=== PATIENT | female | born 1955 | race Caucasian/White ===

== ENCOUNTER 2019-12-27 11:53 | Inpatient (IN) | payer MEDICARE ==
[2019-12-27] MEDS ORDERED: niCARdipine 20 MG in SODIUM CHLORIDE 0.9% 192 ML IV SCH (12:00)
[2019-12-27 12:23] LABS: Glucose,Whole Blood 134 mg/dL (75-99)
--- NOTE | 2019-12-27 12:23 | ED ---
Neuro HPI - General Chief Complaint: Neuro Symptoms/Deficit Stated Complaint: Poss Stroke Source: EMS Mode of arrival: EMS Limitations: no limitations - History of Present Illness Is the patient presenting with stroke symptoms?: Yes Initial Comments: Patient is a 64-year-old female with past history of hypertension presents emergency room with reported stroke like symptoms. Patient states that approximate 30 minutes prior to hospital arrival (11:30 am) she felt as if she was given follow-up to the left side. This is when she realized that she was completely flaccid on that side. Patient denies previous history of CVA. She notified her neighbor who called EMS. MS found the patient to be extremely hypertensive. Reports that she has a history of hypertension however is not on any medications at this time. Patient had left sided facial droop, dysarthria and left upper and lower extremity weakness. She denies being on any blood thinners. No recent head trauma. No fevers or chills. No other alleviating, precipitating or modifying factors - Related Data Home Medications: Home Medications Medication Instructions Recorded Confirmed Acetaminophen [Tylenol] 1,000 mg PO Q4-6H PRN 12/27/19 12/27/19 Allergies/Adverse Reactions: Allergies Allergy/AdvReac Type Severity Reaction Status Date / Time Unable to Assess Allergy Verified 12/27/19 13:16 Review of Systems ROS Statement: Those systems with pertinent positive or pertinent negative responses have been documented in the HPI. ROS Other: All systems not noted in ROS Statement are negative. General Exam Limitations: no limitations Stroke MDM - Lab Data Result diagrams: 12/27/19 12:18 12/27/19 12:18 Lab Results 12/27/19 12/27/19 12/27/19 Range/Units 12:12 12:18 12:18 WBC 9.4 (3.8-10.6) k/uL RBC 4.47 (3.80-5.40) m/uL Hgb 14.2 (11.4-16.0) gm/dL Hct 42.4 (34.0-46.0) % MCV 94.9 (80.0-100.0) fL MCH 31.8 (25.0-35.0) pg MCHC 33.5 (31.0-37.0) g/dL RDW 12.3 (11.5-15.5) % Plt Count 446 (150-450) k/uL MPV 6.4 Neutrophils % 62 % Lymphocytes % 27 % Monocytes % 6 % Eosinophils % 3 % Basophils % 1 % Neutrophils # 5.8 (1.3-7.7) k/uL Lymphocytes # 2.5 (1.0-4.8) k/uL Monocytes # 0.6 (0-1.0) k/uL Eosinophils # 0.3 (0-0.7) k/uL Basophils # 0.1 (0-0.2) k/uL PT 9.7 (9.0-12.0) sec INR 0.9 (<1.2) APTT 23.4 (22.0-30.0) sec Sodium (137-145) mmol/L Potassium (3.5-5.1) mmol/L Chloride (98-107) mmol/L Carbon Dioxide (22-30) mmol/L Anion Gap mmol/L BUN (7-17) mg/dL Creatinine (0.52-1.04) mg/dL Est GFR (CKD-EPI)AfAm (>60 ml/min/1.73 sqM) Est GFR (CKD-EPI)NonAf (>60 ml/min/1.73 sqM) Glucose (74-99) mg/dL POC Glucose (mg/dL) 134 H (75-99) mg/dL POC Glu Rib Chopper ID [employer] Calcium (8.4-10.2) mg/dL Total Bilirubin (0.2-1.3) mg/dL AST (14-36) U/L ALT (4-34) U/L Alkaline Phosphatase (38-126) U/L Troponin I (0.000-0.034) ng/mL Total Protein (6.3-8.2) g/dL Albumin (3.5-5.0) g/dL 12/27/19 12/27/19 Range/Units 12:18 12:18 WBC (3.8-10.6) k/uL RBC (3.80-5.40) m/uL Hgb (11.4-16.0) gm/dL Hct (34.0-46.0) % MCV (80.0-100.0) fL MCH (25.0-35.0) pg MCHC (31.0-37.0) g/dL RDW (11.5-15.5) % Plt Count (150-450) k/uL MPV Neutrophils % % Lymphocytes % % Monocytes % % Eosinophils % % Basophils % % Neutrophils # (1.3-7.7) k/uL Lymphocytes # (1.0-4.8) k/uL Monocytes # (0-1.0) k/uL Eosinophils # (0-0.7) k/uL Basophils # (0-0.2) k/uL PT (9.0-12.0) sec INR (<1.2) APTT (22.0-30.0) sec Sodium 131 L (137-145) mmol/L Potassium 3.8 (3.5-5.1) mmol/L Chloride 99 (98-107) mmol/L Carbon Dioxide 25 (22-30) mmol/L Anion Gap 7 mmol/L BUN 14 (7-17) mg/dL Creatinine 0.76 (0.52-1.04) mg/dL Est GFR (CKD-EPI)AfAm >90 (>60 ml/min/1.73 sqM) Est GFR (CKD-EPI)NonAf 83 (>60 ml/min/1.73 sqM) Glucose 139 H (74-99) mg/dL POC Glucose (mg/dL) (75-99) mg/dL POC Glu Rib Chopper ID Calcium 9.3 (8.4-10.2) mg/dL Total Bilirubin 0.5 (0.2-1.3) mg/dL AST 25 (14-36) U/L ALT 13 (4-34) U/L Alkaline Phosphatase 86 (38-126) U/L Troponin I <0.012 (0.000-0.034) ng/mL Total Protein 6.3 (6.3-8.2) g/dL Albumin 3.7 (3.5-5.0) g/dL - Medical Decision Making Upon arrival patient is probably evaluated in the potter. She does have an NIH of 11. Accu-Chek is performed and vitals are obtained. Patient is immediately taken to CT for CT brain and CT angiography. Patient is then placed back in the trauma bay. I did discuss results with Dr. Bills. He recommends against TPA administration as the patient does demonstrate multiple areas of previous CVA with concern for cardiac embolic phenomenon. I do received notice that the patient has completely resolved her symptoms at this time which makes TPA relatively contraindicated due to rapidly improving symptoms. Patient was given an aspirin. Laboratory studies are reviewed. CT angiography does demonstrate atheromatous changes present. It is reevaluated upon multiple occasions and her NH continues to be 0. She is maintained on a Cardene drip because of her hypertensive emergency. Results are discussed with the patient. I also discussed the case with who accepted admission. Also discussed the case with Mitchell who works with Dr. Allred who accepted the patient to the ICU. The pressure goal will be 180-220 systolic. Patient currently remained in stable condition awaiting a bed EKG demonstrates a sinus tachycardia with a ventricular rate of 109. TX interval 144. QRS 86. QTC of 476. No acute ST segment elevations or depressions concerning for ischemic changes 12/27/19 12:23 Past Medical History Past Medical History: Hypertension History of Any Multi-Drug Resistant Organisms: None Reported Past Surgical History: Appendectomy, Section Past Psychological History: Anxiety Smoking Status: Current every day smoker Past Alcohol Use History: Daily Past Drug Use History: Marijuana Course Vital Signs 12/27/19 12/27/19 12/27/19 12:02 12:10 12:44 Temperature 98.7 F Pulse Rate 120 H 124 H 130 H Respiratory 18 18 18 Rate Blood Pressure 259/136 233/138 212/128 O2 Sat by Pulse 98 100 97 Oximetry 12/27/19 12/27/19 12/27/19 13:26 13:39 14:00 Temperature Pulse Rate 116 H 123 H 122 H Respiratory 18 18 18 Rate Blood Pressure 169/88 184/98 169/107 O2 Sat by Pulse 98 96 97 Oximetry 12/27/19 14:57 Temperature Pulse Rate 122 H Respiratory 18 Rate Blood Pressure 174/123 O2 Sat by Pulse 96 Oximetry - Reevaluation(s) Reevaluation #1: On phone with Dr. Ford. RN notifies me that patient is now moving left side and NIH is zero. Not a TPA candidate due to rapidly improving symptoms. RN then notifies me that patients symptoms have returned and NIH is now 7. Dr. Ford states there are signs of multiple CVAs on CT. Recommends AGAINST TPA due risk of hemorrhagic conversion. 12/27/19 12:18 Reevaluation #2: Patient at this time and NIH is currently 0. Patient has received entire function back of her left side 12/27/19 13:23 Disposition Clinical Impression: Cerebrovascular accident (CVA), Sinus tachycardia, Left hemiparesis Disposition: ADMITTED IP TO THIS [facility] Condition: Serious Is patient prescribed a controlled substance at d/c from ED?: No Decision to Admit Reason: Admit from EC Decision Date: 12/27/19 Decision Time: 13:24
--- NOTE | 2019-12-27 12:26 | CT ---
EXAMINATION TYPE: CT brain wo con for TPA DATE OF EXAM: 12/27/2019 COMPARISON: None HISTORY: Left sided paralysis CT DLP: 1102.8 mGycm Automated exposure control for dose reduction was used. Helical imaging through the brain. FINDINGS: Periventricular and subcortical white matter shows patchy low attenuation, somewhat asymmetric, there is greater low attenuation in the watershed area of the left posterior parietal region. Basal gangli a show calcification bilaterally. Cortical atrophy is noted. No hemorrhage or hydrocephalus. Calvariu m is intact. Inflammatory changes present in the right maxillary sinus. IMPRESSION: AGE-RELATED CHANGES OF ATROPHY AND CHRONIC SMALL VESSEL ISCHEMIA, MRI MAY BE OF BENEFIT.
[2019-12-27 12:27] LABS: Basophils # (A) 0.1 k/uL (0-0.2); Basophils % (A) 1 %; Eosinophils # (A) 0.3 k/uL (0-0.7); Eosinophils % (A) 3 %; HCT 42.4 % (34.0-46.0); HGB 14.2 gm/dL (11.4-16.0); Lymphocytes # (A) 2.5 k/uL (1.0-4.8); Lymphocytes % (A) 27 %; MCH 31.8 pg (25.0-35.0); MCHC 33.5 g/dL (31.0-37.0); MCV 94.9 fL (80.0-100.0); Mean Platelet Volume 6.4; Monocytes # (A) 0.6 k/uL (0-1.0); Monocytes % (A) 6 %; Neutrophils # (A) 5.8 k/uL (1.3-7.7); Neutrophils % (A) 62 %; Platelet Count 446 k/uL (150-450); RBC 4.47 m/uL (3.80-5.40); RDW 12.3 % (11.5-15.5); WBC 9.4 k/uL (3.8-10.6)
[2019-12-27 12:37] LABS: ALT 13 U/L (4-34); AST 25 U/L (14-36); African American GFR (CKD) >90 (>60 ml/min/1.73 sqM); Albumin 3.7 g/dL (3.5-5.0); Alkaline Phosphatase 86 U/L (38-126); Anion Gap 7 mmol/L; Blood Urea Nitrogen 14 mg/dL (7-17); Calcium 9.3 mg/dL (8.4-10.2); Carbon Dioxide 25 mmol/L (22-30); Chloride 99 mmol/L (98-107); Glucose 139 mg/dL (74-99); Non-African American GFR(CKD) 83 (>60 ml/min/1.73 sqM); Potassium 3.8 mmol/L (3.5-5.1); Sodium 131 mmol/L (137-145); Total Bilirubin 0.5 mg/dL (0.2-1.3); Total Protein 6.3 g/dL (6.3-8.2)
[2019-12-27 12:42] LABS: INR 0.9 (<1.2); Partial Thromboplastin Time 23.4 sec (22.0-30.0); Prothrombin Time 9.7 sec (9.0-12.0)
--- NOTE | 2019-12-27 12:52 | XR ---
EXAMINATION TYPE: XR chest 2V DATE OF EXAM: 12/27/2019 COMPARISON: NONE TECHNIQUE: PA and lateral views submitted. HISTORY: Syncope FINDINGS: The lungs are clear and there is no pneumothorax, pleural effusion, or focal pneumonia. Hyperinflat ion noted. Degenerative changes spine. Atherosclerotic change aorta IMPRESSION: 1. No acute process. 2. COPD.
--- NOTE | 2019-12-27 13:00 | CT ---
EXAMINATION TYPE: CT angio head neck DATE OF EXAM: 12/27/2019 HISTORY: Neuro deficit, acute stroke suspected COMPARISON: CT brain same date CT DLP: 303.8 mGycm. Automated Exposure Control for Dose Reduction was Utilized. TECHNIQUE: CTA scan of the neck is performed with IV Contrast, patient injected with 60 mL of Isovue 370, axial images are obtained, coronal and sagittal reformatted images are reviewed. Three-D recons tructed images are created on an independent workstation and reviewed. FINDINGS: Carotid/Vascular Structures: The transverse aorta, innominate, left and right common carotid, left an d right subclavian arteries are patent. The vertebral arteries are patent. Right vertebral artery is dominant. The right internal and external carotid arteries are patent as are the left, there is no si gnificant stenosis of the proximal internal carotid artery on the right or left by NASCETcriteria. T here is extensive plaque involving the carotid bulb on the left. Stenosis of the proximal internal ca rotid artery on the left corresponds to approximately less than 50% diameter reduction. The [place] is patent, anterior posterior circulation show no embolus, dissection, or aneury sm, some cerebral vascular calcifications are present in the carotid siphons. Other: Probable spinal curvature in the thoracic spine. Degenerative disc disease present within the cervical spine Inflammatory change present within the right maxillary sinus. Mastoid air cells on the right to show some inflammatory change. Incidental thyroid nodularity noted. IMPRESSION: Atheromatous changes are present as described. No hemodynamic significant stenosis. No ev ident embolus. Additional findings above.
[2019-12-27] MEDS ORDERED: ATORVASTATIN 40 MG TAB PO STA (13:24)
[2019-12-27] MEDS ORDERED: ASPIRIN 325 MG TAB PO STA (13:24)
[2019-12-27] MEDS ORDERED: NALOXONE 0.4 MG/ML 1 ML VIAL IV PRN (13:25)
[2019-12-27] MEDS ORDERED: CLOPIDOGREL 75 MG TAB PO STA (15:18)
--- NOTE | 2019-12-27 15:52 | P.CNNES ---
History of Present Illness Consult date: 12/27/19 Requesting physician: Macie Saldana Reason for Consult: Acute left hemiparesis-resolved, suspected TIA, hypertensive emergency History of Present Illness: Patient is a 64-year-old female arrived to the hospital at 11:53 AM by ambulance for acute onset of left hemiparesis. Patient states that around 11:30 AM, she was sitting in the chair using her cell phone, when the phone fell off her left hand, and she felt as if she was losing balance and she did fall onto the floor on the left side from a seated position. When she fell, she could not get up, as her left side was completely flaccid. She required help. She couldn't move her left side. Her called the ambulance and patient was brought to the hospital by ambulance. Patient's blood pressure on arrival was 259/136, pulse rate 120, temperature 98.7. CT head revealed periventricular and subcortical white matter shows patchy low attenuation, somewhat asymmetric, there is greater low attenuation in the watershed area of the left posterior parietal region. Basal ganglia show calcification bilaterally. Some cortical atrophy. Overall impression, it showed age-related changes of atrophy and chronic small vessel ischemia, MRI may be of benefit. CTA of head and neck showed atheromatous changes. No hemodynamic significant stenosis. No evident embolus. Chest x-ray showed no acute process, COPD. EKG shows sinus tachycardia. CBC, PT/PTT normal, sodium 131 potassium 3.8, normal renal functions. Hepatic panel troponin normal or negative. Stroke neurologist Dr. Ford was consulted by the ED staff. At 12:18 PM she was not a candidate for TPA because of rapidly improving symptoms. However symptoms came back and her NIH stroke scale was 7. The stroke neurologist noticed there were signs of multiple CVAs on the CT and recommended against TPA due to risk of hemorrhagic conversion. Another documentation by ED staff at 1:23 PM showed patient's NIH stroke scale again 0. Her left hemiparesis has resolved. Patient had 2 other episodes of transient Left hemiparesis, that resolved in a few minutes. At present patient feels perfectly fine. Patient has history of hypertension and hyperlipidemia for 5 years, but stopped taking medication for both of these conditions 2 years ago as the medications were making her feel sick. She has smoked 1 pack per day since age 14. Patient does not take any antiplatelet medication. Review of Systems As above in detail. All other review of systems completely unremarkable. Patient denies any chest pain shortness of breath wheezing or cough. Denies any double vision, loss of vision, hoarseness, sore throat, dysphagia. Denies abdominal pain, nausea vomiting diarrhea. Past Medical History Past Medical History: Hypertension History of Any Multi-Drug Resistant Organisms: None Reported Past Surgical History: Appendectomy, Section Past Psychological History: Anxiety Smoking Status: Current every day smoker Past Alcohol Use History: Daily Past Drug Use History: Marijuana Medications and Allergies Home Medications Medication Instructions Recorded Confirmed Type Acetaminophen [Tylenol] 1,000 mg PO Q4-6H PRN 12/27/19 12/27/19 History Allergies Allergy/AdvReac Type Severity Reaction Status Date / Time Unable to Assess Allergy Verified 12/27/19 13:16 Physical Examination - Vital Signs Vital Signs: Vital Signs Temp Pulse Resp BP Pulse Ox 12/27/19 14:00 122 H 18 169/107 97 12/27/19 13:39 123 H 18 184/98 96 12/27/19 13:26 116 H 18 169/88 98 12/27/19 12:44 130 H 18 212/128 97 12/27/19 12:10 98.7 F 124 H 18 233/138 100 12/27/19 12:02 120 H 18 259/136 98 Intake and Output 12/26/19 12/27/19 12/27/19 22:59 06:59 14:59 Intake Total 115.833 Balance 115.833 Intake: Intake, IV Titration 115.833 Amount niCARdipine 20 mg In 115.833 Sodium Chloride 0.9% 192 ml @ 5 MG/HR 50 mls/hr IV .Q4H [facility] Rx#:[id number] Other: Weight 49.895 kg On examination patient is an elderly female, in no acute distress. Patient is alert and awake fully oriented. Speech and language functions are normal. Attention and concentration, fund of knowledge is adequate. On cranial nerve examination pupils are round and reactive to light, visual carpenter are full on confrontation, extraocular muscles are intact with no nystagmus. Face is symmetric, tongue protrudes to the midline. Palatal elevation and sensation normal, hearing and shoulder shrug normal. Facial sensations normal. On muscle strength testing there is no pronator drift and the strength is normal in the arms and legs distally and proximally except left deltoid which is about 5-on the left. Sensory to touch is equal with no neglect on double simultaneous stimulation. Deep tendon reflexes are diminished and plantars are downgoing. Tone and bulk of muscles normal. No ataxia for [id number] testing although she slightly tremulous on both sides. Gait deferred. There is no obvious bruit, S1 and S2 audible, peripheral pulses present. Abdomen soft nontender. Chest clear. Results - Laboratory Findings CBC and BMP: 12/27/19 12:18 12/27/19 12:18 Abnormal Lab Findings: Abnormal Labs 12/27/19 12/27/19 12:12 12:18 Sodium 131 L Glucose 139 H POC Glucose (mg/dL) 134 H Assessment and Plan Assessment: * Recurrent TIA, manifesting with left hemiparesis, resolved. Patient had 4 such spells today. Patient's current NIH stroke scale is 0. * Hypertension * Hyperlipidemia * Tobacco user * Noncompliance with medication. Plan: * Patient has been given aspirin 325 mg. We will also add Plavix 75 mg for stroke prevention (DAP for 3 weeks). Symptoms are likely due to small vessel disease with ischemia in a small penetrating blood vessel (internal capsule or angelina). * Permissive hypertension, with treatment of blood pressure > 200/110. * MRI of the brain * Fasting lipid panel, hemoglobin A1c * 2-D echo to rule out any embolic source. * Complete tobacco cessation. * Close neuro checks every 1 hour 6 hours and then every 2 hours. * Neurology will follow.
--- NOTE | 2019-12-27 19:15 | P.CNPUL ---
History of Present Illness Consult date: 12/27/19 Chief complaint: Acute left-sided weakness, TIA History of present illness: 64-year-old female patient who came into the hospital because of an acute left- sided weakness and hypertensive emergency. The patient arrived to the hospital on 11:53 AM via ambulance as the patient developed an acute left-sided hemiparesis. Please refer to neurology regarding the details of the hospital admission as the patient was apparently at home and she was using her cell phone where she felt that the left side of the body became weak and she dropped a phon e. The patient also fell onto the floor on the left side from a seated position. She felt that the left side was quite flaccid. She required help. EMS was called to the scene. The patient's blood pressure was 259/136 with a pulse of 120 and a temperature of 98.7. In the ED, CAT scan of the head was done and it showed periventricular subcortical white matter changes and patchy low attenuation, somewhat asymmetric and greater attenuation in the watershed areas on the left posterior parietal region. Basil ganglia was calcified bilaterally. There was also some cortical atrophy. Overall impression was that the patient agent at that atrophy with chronic small vessel ischemia. CT angios the head and the neck showed atherosclerotic changes. No significant hemodynamic stenosis. No evidence of any embolism. At that point, interventional physician was involved and the patient was not found to be a candidate for TPA as the patient also showed rapid improvement in his symptoms. Her NIH score came back at 7. The patient was noted to have areas of multiple CVA on the CAT scan and he recommended against TPA due to risk of hemorrhagic transformation. The patient gradually had some recovery left-sided weakness. At the time of the evaluation by our neurologist the patient had adequate motor function and a left side of the body. Note that the patient also has history of hypertension and hyperlipidemia. Based on the significant rise in the blood pressure, the patient was started on Nicardepine drip and ICU transfer was recommended. The patient was started on aspirin 325 mg by mouth daily. The patient was also started on Plavix 75 mg by mouth daily. It was recommended ofelia t the patient received permissive hypertension with treatment of the blood pressure only. Goes above and beyond systolic of 200 and diastolic above 110. MRI of the brain is pending. Echocardiogram was also ordered.during her ED stay, the patient had an additional 3 episodes of TIA with complete recovery. This was witnessed by the neurologist . Nicardipene uis currently running @ 0.8 mg/hr Review of Systems Constitutional: Denies chills, Denies fever Eyes: denies as per HPI, denies blurred vision, denies bulging eye, denies d ecreased vision, denies diplopia, denies discharge, denies dry eye, denies irritation, denies itching, denies pain, denies photophobia, denies loss of peripheral vision, denies loss of vision, denies tunnel vision/blind spots Ears: deny: decreased hearing, ear discharge, earache, tinnitus Ears, nose, mouth and throat: Denies headache, Denies sore throat Breasts: absent: as per HPI, change in shape, gynecomastia, masses, nipple discharge, pain, skin changes, swelling Cardiovascular: Denies chest pain, Denies shortness of breath Respiratory: Reports as per HPI Gastrointestinal: Reports as per HPI Genitourinary: Reports as per HPI Menstruation: Reports as per HPI Musculoskeletal: Reports as per HPI Musculoskeletal: absent: ankle pain, ankle stiffness, ankle swelling Integumentary: Reports as per HPI Neurological: Reports weakness Psychiatric: Reports as per HPI Endocrine: Reports as per HPI Hematologic/Lymphatic: Reports as per HPI Allergic/Immunologic: Reports as per HPI Past Medical History Past Medical History: Hyperlipidemia, Hypertension History of Any Multi-Drug Resistant Organisms: None Reported Past Surgical History: Appendectomy, Section Past Psychological History: Anxiety Smoking Status: Current every day smoker Past Alcohol Use History: Daily Past Drug Use History: Marijuana Medications and Allergies Home Medications Medication Instructions Recorded Confirmed Type Acetaminophen [Tylenol] 1,000 mg PO Q4-6H PRN 12/27/19 12/27/19 History Allergies Allergy/AdvReac Type Severity Reaction Status Date / Time Unable to Assess Allergy Verified 12/27/19 13:16 Physical Exam Vitals: Vital Signs Temp Pulse Resp BP Pulse Ox 12/27/19 18:00 115 H 18 179/128 99 12/27/19 15:55 113 H 18 172/113 98 12/27/19 14:57 122 H 18 174/123 96 12/27/19 14:00 122 H 18 169/107 97 12/27/19 13:39 123 H 18 184/98 96 12/27/19 13:26 116 H 18 169/88 98 12/27/19 12:44 130 H 18 212/128 97 12/27/19 12:10 98.7 F 124 H 18 233/138 100 12/27/19 12:02 120 H 18 259/136 98 Intake and Output 12/27/19 12/27/19 12/27/19 06:59 14:59 22:59 Intake Total 115.833 Balance 115.833 Intake: Intake, IV Titration 115.833 Amount niCARdipine 20 mg In 115.833 Sodium Chloride 0.9% 192 ml @ 5 MG/HR 50 mls/hr IV .Q4H [facility] Rx#:[id number] Other: Weight 49.895 kg The patient appeared well nourished and normally developed. Vital signs as documented. Head exam is unremarkable. No scleral icterus or corneal arcus noted. Neck is without jugular venous distension, thyromegaly, or carotid bruits. Carotid upstrokes are brisk bilaterally. Lungs are clear to auscultation and percussion. Cardiac exam reveals the PMI to be normally sized and situated. Rhythm is regular. First and second heart sounds normal. No murmurs, rubs or gallops. Abdominal exam reveals normal bowel sounds, no masses, no organomegaly and no aortic enlargement. Extremities are nonedematous and both femoral and pedal pulses are normal. Went over skin neurologically,pupils are round and reactive to light, visual carpenter are full on confrontation, extraocular muscles are intact with no nystagmus. Face is symmetric, tongue protrudes to the midline. Palatal elevation and sensation normal, hearing and shoulder shrug normal. Facial sensations normal. On muscle strength testing there is no pronator drift and the strength is normal in the arms and legs distally and proximally except left deltoid which is about 5-on the left. Sensory to touch is equal with no neglect on double simultaneous stimulation. Deep tendon reflexes are diminished and plantars are downgoing. Tone and bulk of muscles normal. No ataxia for [id number] testing although she slightly tremulous on both sides. Gait deferred Results - Laboratory Findings CBC and BMP: 12/27/19 12:18 12/27/19 12:18 PT/INR, D-dimer PT 9.7 sec (9.0-12.0) 12/27/19 12:18 INR 0.9 (<1.2) 12/27/19 12:18 Abnormal lab findings: Abnormal Labs 12/27/19 12/27/19 12:12 12:18 Sodium 131 L Glucose 139 H POC Glucose (mg/dL) 134 H - Diagnostic Findings Chest x-ray: image reviewed Assessment and Plan Plan: 1 acute hypertensive emergency 2 recurrent TIAs manifesting with left-sided hemiparesis and clinically the patient recovered from this and she is back to her baseline. The patient had several spells of TIAs. Her current NIH score scale is at 0 3 hypertension, history of 4 Hyperlipidemia 5 smoker Plan We'll chest with the patient in ICU neuro checks frequently every 1 hour in the ICU Continue aspirin and Plavix per neurology recommendation. Continue with a nicardipine drip allowing blood pressure at a higher level. The permissive hypertension will include treatment of blood pressure >200/110 and according to the drip rate will be adjusted in the ICU echocardiogram to rule out any embolic source of TIA Fasting lipid profile Smoking cessation counseling We'll continue to follow
[2019-12-27] MEDS: niCARdipine 20 MG in SODIUM CHLORIDE 0.9% 192 ML IV SCH ×2 (19:30→22:12)
--- NOTE | 2019-12-27 20:47 | P.HPIM ---
History of Present Illness H&P Date: 12/27/19 Patient is a 64-year-old female with a known history of hypertension not taking any medications, currently everyday smoker, anxiety and history of marijuana use presents to ER with complaints of sudden onset of left sided weakness about half an hour prior to arrival to the hospital. Patient was sitting and using her cell phone and suddenly she felt left-sided weakness and her cell phone follow-up from her hand and patient fall towards the left side. Patient could not move her left side and her called the ambulance and the patient was brought to the hospital. On admission patient's blood pressure was 259/130 6 mmHg and pulse 120 and respiration 18 and pulse ox 98% CT head showed age-related changes of atrophy and chronic small ischemia and periventricular and subcortical white matter shows patchy low-attenuation somewhat asymmetric changes. CT angiogram of the head and neck was done showed atheromatous changes with less than 50% diameter reduction. No hemodynamic significant stenosis. Chest x-ray showed COPD. No acute process. EKG showed sinus tachycardia Symptoms resolved spontaneously. Patient was seen by stroke neurology in the ER and was not a candidate for TPA. Also noticed there were signs of multiple CVAs on the CT and recommended against TPA due to possible hemorrhagic conversion. Laboratory data showed sodium 131, potassium 3.8 and chloride 99 and BUN 14 and creatinine 0.76 Troponin 0 0.012 Liver enzymes are within normal limits Review of Systems Constitutional: Patient denies any fever or chills . No generalized weakness or weight loss. Abdomen: Patient denied nausea vomiting and diarrhea and abdominal pain. Cardiovascular: Patient denies any chest pain or short of breath no palpitations. Respiratory: patient denied any cough or sputum production. No shortness of breath Neurologic: Patient denied any numbness or tingling headache. left sided weakness on admission Musculoskeletal: Patient denies any complaints of joint swelling or deformity. Skin: Negative Psychiatric: Negative Endocrine: No heat or cold intolerance. No recent weight gain. Genitourinary: No dysuria or hematuria. All other 14 point ROS negative except the above Past Medical History Past Medical History: Hyperlipidemia, Hypertension History of Any Multi-Drug Resistant Organisms: None Reported Past Surgical History: Appendectomy, Section Past Psychological History: Anxiety Smoking Status: Current every day smoker Past Alcohol Use History: Daily Past Drug Use History: Marijuana Medications and Allergies Home Medications Medication Instructions Recorded Confirmed Type Acetaminophen [Tylenol] 1,000 mg PO Q4-6H PRN 12/27/19 12/27/19 History Allergies Allergy/AdvReac Type Severity Reaction Status Date / Time Unable to Assess Allergy Verified 12/27/19 13:16 Physical Exam Vitals: Vital Signs Temp Pulse Resp BP Pulse Ox 12/27/19 19:48 98.2 F 99 18 174/114 99 12/27/19 18:43 97.8 F 110 H 18 164/111 12/27/19 18:00 115 H 18 179/128 99 12/27/19 15:55 113 H 18 172/113 98 12/27/19 14:57 122 H 18 174/123 96 12/27/19 14:00 122 H 18 169/107 97 12/27/19 13:39 123 H 18 184/98 96 12/27/19 13:26 116 H 18 169/88 98 12/27/19 12:44 130 H 18 212/128 97 12/27/19 12:10 98.7 F 124 H 18 233/138 100 12/27/19 12:02 120 H 18 259/136 98 Intake and Output 12/27/19 12/27/19 12/27/19 06:59 14:59 22:59 Intake Total 115.833 92.667 Balance 115.833 92.667 Intake: Intake, IV Titration 115.833 92.667 Amount niCARdipine 20 mg In 115.833 84.167 Sodium Chloride 0.9% 192 ml @ 5 MG/HR 50 mls/hr IV .Q4H [facility] Rx#:[id number] niCARdipine 20 mg In 8.5 Sodium Chloride 0.9% 192 ml @ 5 MG/HR 50 mls/hr IV .Q4H [facility] Rx#:[id number] Other: Weight 49.895 kg PHYSICAL EXAMINATION: Patient is lying in the bed comfortably, no acute distress, awake alert and oriented.. HEENT: Normocephalic. Neck is supple. Pupils reactive. Nostrils clear. Oral cavity is moist. Ears reveal no drainage. Neck reveals no JVD, carotid bruits, or thyromegaly. CHEST EXAMINATION: Trachea is central. Symmetrical expansion. Lung carpenter clear to auscultation and percussion. CARDIAC: Normal S1, S2 with no gallops. No murmurs ABDOMEN: Soft. Bowel sounds normal. No organomegaly. No abdominal bruits. Extremities: reveal no edema. No clubbing or cyanosis Neurologically awake, alert, oriented x3 with well-coordinated movements. No focal deficits noted Skin: No rash or skin lesions. Psychiatric: Coperative. Nonsuicidal Musculoskeletal: No joint swelling or deformity. Normal range of motion. Results CBC & Chem 7: 12/27/19 12:18 12/27/19 12:18 Labs: Abnormal Lab Results - Last 24 Hours (Table) 12/27/19 12/27/19 Range/Units 12:12 12:18 Sodium 131 L (137-145) mmol/L Glucose 139 H (74-99) mg/dL POC Glucose (mg/dL) 134 H (75-99) mg/dL Thrombosis Risk Factor Assmnt - DVT/VTE Prophylaxis DVT/VTE Prophylaxis: Mechanical Prophylaxis ordered Assessment and Plan Assessment: Acute left-sided hemiparesis resolved now. Likely due to TIA. Abnormal CT scan multiple small infarcts. Rule out embolic phenomenon. Hypertensive emergency on admission. Not on any antihypertensives at home. Hyperlipidemia Ongoing nicotine addiction DVT prophylaxis with SCDs. Plan: Patient was given a dose of aspirin 325 mg in the ER. Plavix was added. Patient was started on nicardipine drip with a goal of blood pressure 180/110. Patient will be monitored in the ICU. A1c, lipid panel, TSH and B12 levels will be ordered. Neurology is on board and further recommendations based on the clinical course. Prognosis guarded at this time. Time with Patient: Greater than 30
[2019-12-28] MEDS: niCARdipine 20 MG in SODIUM CHLORIDE 0.9% 192 ML IV SCH ×4 (00:51→10:29)
[2019-12-28 03:33] LABS: Hemoglobin A1C 5.5 % (4.0-6.0)
[2019-12-28 04:35] LABS: Basophils # (A) 0.1 k/uL (0-0.2); Basophils % (A) 0 %; Eosinophils # (A) 0.4 k/uL (0-0.7); Eosinophils % (A) 3 %; HGB 14.6 gm/dL (11.4-16.0); Lymphocytes % (A) 15 %; MCH 32.6 pg (25.0-35.0); MCHC 33.9 g/dL (31.0-37.0); MCV 96.1 fL (80.0-100.0); Mean Platelet Volume 6.5; Monocytes # (A) 0.6 k/uL (0-1.0); Monocytes % (A) 4 %; Neutrophils # (A) 10.7 k/uL (1.3-7.7); Neutrophils % (A) 77 %; Platelet Count 450 k/uL (150-450); RBC 4.47 m/uL (3.80-5.40); RDW 12.3 % (11.5-15.5); WBC 13.8 k/uL (3.8-10.6)
[2019-12-28 04:43] LABS: African American GFR (CKD) >90 (>60 ml/min/1.73 sqM); Anion Gap 6 mmol/L; Blood Urea Nitrogen 11 mg/dL (7-17); Calcium 9.4 mg/dL (8.4-10.2); Carbon Dioxide 27 mmol/L (22-30); Chloride 102 mmol/L (98-107); Cholesterol 270 mg/dL (<200); Glucose 119 mg/dL (74-99); HDL Cholesterol 89 mg/dL (40-60); LDL Cholesterol,Calculated 166 mg/dL (0-99); Non-African American GFR(CKD) 80 (>60 ml/min/1.73 sqM); Potassium 3.6 mmol/L (3.5-5.1); Sodium 135 mmol/L (137-145); Triglycerides 75 mg/dL (<150)
--- NOTE | 2019-12-28 09:24 | MR ---
EXAMINATION TYPE: MR brain wo con DATE OF EXAM: 12/28/2019 COMPARISON: CT brain 12/27/2019 HISTORY: CVA CONTRAST: Performed utilizing 0 mL intravenous Gadavist gadolinium contrast. TECHNIQUE: Multiplanar, multiecho imaging on a 3.0 Lacy magnet is performed through the brain. Stud y is performed within 24 hours of arrival to the hospital. The craniovertebral junction is normal. The pituitary is normal. Diffusion-weighted imaging is performed. No abnormal hyperintensity is present to suggest an acute i ntracranial infarct or acute ischemic change. There are scattered periventricular white matter changes, likely on the basis of chronic white matter ischemic change. Other etiologies could be considered including multiple sclerosis and vasculitis. L argest area is superior to the occipital horn left lateral ventricle measuring 2.1 x 2.3 cm. Findings correlate with the CT findings. Ventricles and sulci are slightly prominent for the patient age. Mucosal thickenings within the lateral right maxillary sinus. Fluid is within the bilateral mastoid a ir cells. Correlate for bilateral mastoiditis. IMPRESSIONS: 1. Periventricular and deep white matter changes, likely on the basis of chronic white matter ischemi c change. Other etiologies are not excluded. 2. Mild atrophy
--- NOTE | 2019-12-28 09:48 | ECHOF ---
Referral Reason:TIA versus CVA MEASUREMENTS -------- HEIGHT: 162.6 cm WEIGHT: 49.9 kg BP: RVIDd: 3.1 cm (< 3.3) IVSd: 1.2 cm (0.6 - 1.1) LVIDd: 3.6 cm (3.9 - 5.3) LVPWd: 1.6 cm (0.6 - 1.1) IVSs: 1.6 cm LVIDs: 3.0 cm LVPWs: 1.5 cm LA Diam: 3.3 cm (2.7 - 3.8) LAESV Index (A-L): 20.72 ml/m Ao Diam: 2.8 cm (2.0 - 3.7) AV Cusp: 2.0 cm (1.5 - 2.6) MV EXCURSION: 11.820 mm (> 18.000) MV EF SLOPE: 59 mm/s (70 - 150) EPSS: 0.1 cm MV E Michael: 0.47 m/s MV DecT: 242 ms MV A Michael: 1.05 m/s MV E/A Ratio: 0.45 RAP: 5.00 mmHg RVSP: 24.10 mmHg FINDINGS -------- Sinus rhythm. This was a technically good study. The left ventricular size is normal. There is mild concentric left ventricular hypertrophy. Overa ll left ventricular systolic function is low-normal with, an EF between 50 - 55 %. The right ventricle is normal in size. The left atrial size is normal. The right atrial size is normal. No bubble study done, no PA to inject. There is mild aortic valve sclerosis. Mild mitral regurgitation is present. Mild tricuspid regurgitation present. Right ventricular systolic pressure is normal at < 35 mmHg. The aortic root size is normal. There is no pericardial effusion. CONCLUSIONS -------- 1. The left ventricular size is normal. 2. There is mild concentric left ventricular hypertrophy. 3. Overall left ventricular systolic function is low-normal with, an EF between 50 - 55 %. 4. The right ventricle is normal in size. 5. The left atrial size is normal. 6. The right atrial size is normal. 7. No bubble study done, no PA to inject. 8. There is mild aortic valve sclerosis. 9. Mild mitral regurgitation is present. 10. Mild tricuspid regurgitation present. 11. Right ventricular systolic pressure is normal at < 35 mmHg. 12. The aortic root size is normal. 13. There is no pericardial effusion DROP WIRE BUILDER: Rosario Desai RDCS
[2019-12-28 10:58] VITALS: BMI 18.8
[2019-12-28] MEDS ORDERED: POTASSIUM CHLORIDE ER 20 MEQ TAB.ER PO SCH (11:00)
[2019-12-28] MEDS: ATORVASTATIN 80 MG TAB PO SCH (11:19)
[2019-12-28] MEDS: CLOPIDOGREL 75 MG TAB PO SCH (11:19)
[2019-12-28] MEDS: ASPIRIN 81 MG PO SCH (11:19)
--- NOTE | 2019-12-28 11:38 | ECHOF ---
Referral Reason:BUBBLE STUDY MEASUREMENTS -------- HEIGHT: 0.0 cm WEIGHT: 0.0 kg BP: FINDINGS -------- Limited Study Contrast study was performed with 2 iv injections of 8 ccs of agitated normal saline, at rest, and wi th cough. Negative agitated saline study for PFO. Interatrial and interventricular septum intact. CONCLUSIONS -------- 1. Contrast study was performed with 2 iv injections of 8 ccs of agitated normal saline, at rest, and with cough. 2. Negative agitated saline study for PFO. 3. Interatrial and interventricular septum intact. ADMINISTRATIVE SALES ASSISTANT: Pratima Cordova RDCS
[2019-12-28 12:06] LABS: T4, Free (Free Thyroxine) 1.25 ng/dL (0.78-2.19)
--- NOTE | 2019-12-28 13:25 | P.PN ---
Subjective Progress Note Date: 12/28/19 Patient states she is doing well. No further TIAs since last seen. Denies headache. Objective - Vital Signs Vital signs: Vital Signs Temp 97.9 F 12/28/19 09:42 Pulse 101 H 12/28/19 11:00 Resp 24 12/28/19 11:00 BP 144/75 12/28/19 11:00 Pulse Ox 99 12/28/19 11:00 Intake & Output 12/27/19 12/28/19 12/28/19 18:59 06:59 18:59 Intake Total 200.000 491.00 316.250 Output Total 0 Balance 200.000 491.00 316.250 Weight 49.895 kg 49.895 kg Intake: Intake, IV Titration 200.000 491.00 316.250 Amount niCARdipine 20 mg In 200.000 Sodium Chloride 0.9% 192 ml @ 5 MG/HR 50 mls/hr IV .Q4H [facility] Rx#:[id number] niCARdipine 20 mg In 491.00 316.250 Sodium Chloride 0.9% 192 ml @ 5 MG/HR 50 mls/hr IV .Q4H [facility] Rx#:[id number] Oral 0 Output: Urine 0 Other: Voiding Method Bedside Commode # Voids 1 1 - Exam On examination mental status speech and language functions are normal. Cranial nerves are normal. Muscle strength no drift and the strength is normal. Sensations are equal. No ataxia. Tone and bulk of muscles normal. - Labs CBC & Chem 7: 12/28/19 04:12 12/28/19 04:12 Labs: Abnormal Lab Results - Last 24 Hours (Table) 12/28/19 12/28/19 Range/Units 04:12 04:12 WBC 13.8 H (3.8-10.6) k/uL Neutrophils # 10.7 H (1.3-7.7) k/uL Sodium 135 L (137-145) mmol/L Glucose 119 H (74-99) mg/dL Cholesterol 270 H (<200) mg/dL LDL Cholesterol, Calc 166 H (0-99) mg/dL HDL Cholesterol 89 H (40-60) mg/dL Assessment and Plan Assessment: * Recurrent TIA, manifesting with left hemiparesis, resolved. Patient had 4 such spells today. Patient's current NIH stroke scale is 0. MRI of brain negative for stroke. * Hypertension urgency with accelerated hypertension * Hyperlipidemia * Tobacco user * Noncompliance with medication. Plan: * Continue dual antiplatelet medication with aspirin 81 mg and Plavix 75 mg. Symptoms are likely due to small vessel disease with ischemia in a small penet rating blood vessel (internal capsule or angelina). * Blood pressure now well controlled, most recent 144/75. * MRI of the brain revealed periventricular and deep white matter changes, likely on the basis of chronic white matter ischemic change. No acute stroke. * Fasting lipid panel with cholesterol 270, LDL 166, HDL 89 triglycerides 75. Agree with high-dose statins Lipitor 80 mg. * Hemoglobin A1c 5.5 normal. * 2-D echo showed normal left ventricular size, mild concentric LVH, EF is 50- 55%. Left atrial size is normal. Mild aortic valve sclerosis. Bubble study was negative for PFO. Interatrial and interventricular septum intact. * Complete tobacco cessation. * Neurologically patient is stable. * If patient has any recurrent focal symptoms, patient could still be a candidate for thrombolysis, if indicated in appropriate clinical setting, as her current MRI of the brain is completely normal.
--- NOTE | 2019-12-28 16:38 | P.PN ---
Subjective Progress Note Date: 12/28/19 On today's evaluation of 12/28/2019, the patient is neurologically intact. No headaches. No focal neurological deficits. No further episodes of TIAs. The patient will be taken off the nicardipine and the patient will be started on low-dose atenolol as the patient is having some mild sinus tachycardia. BP is under better control and the most recent BP is 144/75. She is afebrile. Echocardiogram was negative for PFO. The anterior atrial an interventricular septum was intact. The patient had an LDL cholesterol of 166. Thyroid fullness in her within normal limits. The rest of the blood work at all within normal limits. Objective - Vital Signs Vital signs: Vital Signs Temp 97.9 F 12/28/19 09:42 Pulse 103 H 12/28/19 16:00 Resp 18 12/28/19 16:00 BP 151/82 12/28/19 16:00 Pulse Ox 99 12/28/19 16:00 Intake & Output 12/27/19 12/28/19 12/28/19 18:59 06:59 18:59 Intake Total 200.000 491.00 316.250 Output Total 0 Balance 200.000 491.00 316.250 Weight 49.895 kg 49.895 kg Intake: Intake, IV Titration 200.000 491.00 316.250 Amount niCARdipine 20 mg In 200.000 Sodium Chloride 0.9% 192 ml @ 5 MG/HR 50 mls/hr IV .Q4H [facility] Rx#:[id number] niCARdipine 20 mg In 491.00 316.250 Sodium Chloride 0.9% 192 ml @ 5 MG/HR 50 mls/hr IV .Q4H [facility] Rx#:[id number] Oral 0 Output: Urine 0 Other: Voiding Method Bedside Commode # Voids 1 1 - Exam The patient appeared well nourished and normally developed. Vital signs as documented. Head exam is unremarkable. No scleral icterus or corneal arcus noted. Neck is without jugular venous distension, thyromegaly, or carotid bruits. Carotid upstrokes are brisk bilaterally. Lungs are clear to auscultation and percussion. Cardiac exam reveals the PMI to be normally sized and situated. Rhythm is regular. First and second heart sounds normal. No murmurs, rubs or gallops. Abdominal exam reveals normal bowel sounds, no masses, no organomegaly and no aortic enlargement. Extremities are nonedematous and both femoral and pedal pulses are normal. Neurologically, the patient is awake and alert and the patient does not have any focal neurological deficit. Cranial nerves are essentially intact. - Labs CBC & Chem 7: 12/28/19 04:12 12/28/19 04:12 Labs: Abnormal Lab Results - Last 24 Hours (Table) 12/28/19 12/28/19 Range/Units 04:12 04:12 WBC 13.8 H (3.8-10.6) k/uL Neutrophils # 10.7 H (1.3-7.7) k/uL Sodium 135 L (137-145) mmol/L Glucose 119 H (74-99) mg/dL Cholesterol 270 H (<200) mg/dL LDL Cholesterol, Calc 166 H (0-99) mg/dL HDL Cholesterol 89 H (40-60) mg/dL Assessment and Plan Plan: 1 acute hypertensive emergency, improved and recovered and the patient was taken off the nicardipine drip this morning 2 recurrent TIAs manifesting with left-sided hemiparesis and clinically the patient recovered from this and she is back to her baseline. The patient had several spells of TIAs. Her current NIH score scale is at 0, currently the patient is neurologically intact. The patient did not receive our TPA. The patient is currently on accommodation of aspirin and Plavix. 3 hypertension, history of 4 Hyperlipidemia, elevated LDL 5 smoker Plan Transfer this patient to medical surgical floor with telemetry monitoring Continue aspirin 81 mg by mouth daily and Plavix 75 mg by mouth daily per neurology recommendation. Started patient on atenolol 25 mg by mouth daily echo results were noted Fasting lipid profile was noted and the patient will be started on high-dose statins Smoking cessation counseling no need for ICU admission and the patient will be transferred to a medical surgical floor
[2019-12-28] MEDS: atenoloL 25 MG TAB PO PRN (18:20)
[2019-12-29] MEDS: ATORVASTATIN 80 MG TAB PO SCH (06:50)
[2019-12-29] MEDS: ASPIRIN 81 MG PO SCH (06:50)
[2019-12-29] MEDS: CLOPIDOGREL 75 MG TAB PO SCH (06:51)
[2019-12-29] MEDS: atenoloL 25 MG TAB PO PRN (06:52)
[2019-12-29 07:06] LABS: HCT 45.3 % (34.0-46.0); HGB 15.3 gm/dL (11.4-16.0); MCH 32.4 pg (25.0-35.0); MCHC 33.7 g/dL (31.0-37.0); MCV 96.2 fL (80.0-100.0); Mean Platelet Volume 6.3; Platelet Count 469 k/uL (150-450); RBC 4.71 m/uL (3.80-5.40); RDW 12.3 % (11.5-15.5); WBC 9.5 k/uL (3.8-10.6)
[2019-12-29 09:38] LABS: African American GFR (CKD) 89.7 (60.0-200.0); Albumin 4.2 g/dL (3.80-4.90); Albumin/Globulin Ratio 1.4 (1.60-3.17); Anion Gap 9.4 mmol/L (4.00-12.00); Calcium 9.6 mg/dL (8.7-10.3); Carbon Dioxide 26.6 mmol/L (21.6-31.8); Non-African American GFR(CKD) 77.4 (60.0-200.0); Potassium 3.7 mmol/L (3.5-5.5); Total Bilirubin 0.8 mg/dL (0.2-1.2); Total Protein 7.2 g/dL (6.2-8.2)
--- NOTE | 2019-12-29 10:39 | P.PN ---
Subjective Progress Note Date: 12/28/19 Principal diagnosis: TIA Patient is a 64-year-old female with a known history of hypertension not taking any medications, currently everyday smoker, anxiety and history of marijuana use presents to ER with complaints of sudden onset of left sided weakness about half an hour prior to arrival to the hospital. Patient was sitting and using her cell phone and suddenly she felt left-sided weakness and her cell phone follow- up from her hand and patient fall towards the left side. Patient could not move her left side and her called the ambulance and the patient was brought to the hospital. On admission patient's blood pressure was 259/130 6 mmHg and pulse 120 and r espiration 18 and pulse ox 98% CT head showed age-related changes of atrophy and chronic small ischemia and periventricular and subcortical white matter shows patchy low-attenuation somewhat asymmetric changes. CT angiogram of the head and neck was done showed atheromatous changes with less than 50% diameter reduction. No hemodynamic significant stenosis. Chest x-ray showed COPD. No acute process. EKG showed sinus tachycardia Symptoms resolved spontaneously. Patient was seen by stroke neurology in the ER and was not a candidate for TPA. Also noticed there were signs of multiple CVAs on the CT and recommended against TPA due to possible hemorrhagic conversion. Laboratory data showed sodium 131, potassium 3.8 and chloride 99 and BUN 14 and creatinine 0.76 Troponin 0 0.012 Liver enzymes are within normal limits 12/28/2019 Patient is currently lying in the bed comfortably. No further episodes of TIA. Patient was initially started on nicardipine drip which has been tapered off. Started on atenolol. blood pressure is fairly controlled now. Patient had MRI of the brain showed no evidence of acute CVA. TTE showed normal ejection fraction and no valvular abnormalities. No evidence of PFO. Patient is being transferred to medical floor and anticipate discharge in the next 24 hours. Next Current medications reviewed. Objective - Vital Signs Vital signs: Vital Signs Temp 97.9 F 12/28/19 09:42 Pulse 67 12/28/19 19:00 Resp 18 12/28/19 19:00 BP 161/93 12/28/19 19:00 Pulse Ox 99 12/28/19 19:00 Intake & Output 12/28/19 12/28/19 12/29/19 06:59 18:59 06:59 Intake Total 491.00 316.250 Output Total 0 Balance 491.00 316.250 Weight 49.895 kg Intake: Intake, IV Titration 491.00 316.250 Amount niCARdipine 20 mg In 491.00 316.250 Sodium Chloride 0.9% 192 ml @ 5 MG/HR 50 mls/hr IV .Q4H [facility] Rx#:[id number] Oral 0 Output: Urine 0 Other: Voiding Method Bedside Commode # Voids 1 1 - Exam PHYSICAL EXAMINATION: Patient is lying in the bed comfortably, no acute distress, awake alert and oriented.. HEENT: Normocephalic. Neck is supple. Pupils reactive. Nostrils clear. Oral cavity is moist. Ears reveal no drainage. Neck reveals no JVD, carotid bruits, or thyromegaly. CHEST EXAMINATION: Trachea is central. Symmetrical expansion. Lung carpenter clear to auscultation and percussion. CARDIAC: Normal S1, S2 with no gallops. No murmurs ABDOMEN: Soft. Bowel sounds normal. No organomegaly. No abdominal bruits. Extremities: reveal no edema. No clubbing or cyanosis Neurologically awake, alert, oriented x3 with well-coordinated movements. No focal deficits noted Skin: No rash or skin lesions. Psychiatric: Coperative. Nonsuicidal Musculoskeletal: No joint swelling or deformity. Normal range of motion. - Labs CBC & Chem 7: 12/29/19 06:47 12/29/19 06:47 Labs: Abnormal Lab Results - Last 24 Hours (Table) 12/28/19 12/28/19 Range/Units 04:12 04:12 WBC 13.8 H (3.8-10.6) k/uL Neutrophils # 10.7 H (1.3-7.7) k/uL Sodium 135 L (137-145) mmol/L Glucose 119 H (74-99) mg/dL Cholesterol 270 H (<200) mg/dL LDL Cholesterol, Calc 166 H (0-99) mg/dL HDL Cholesterol 89 H (40-60) mg/dL Assessment and Plan Assessment: Acute left-sided hemiparesis resolved now. Likely due to TIA. Abnormal CT scan multiple small infarcts. Rule out embolic phenomenon. Hypertensive emergency on admission. Not on any antihypertensives at home. Hyperlipidemia Ongoing nicotine addiction DVT prophylaxis with SCDs. Plan: Patient was given a dose of aspirin 325 mg in the ER. Plavix was added. Patient was started on nicardipine drip with a goal of blood pressure 180/110. Currently blood pressure is improving. Started on atenolol Patient will be monitored in the ICU. A1c, lipid panel, TSH and B12 levels wi thin normal limits.. Neurology is on board and further recommendations based on the clinical course. Prognosis guarded at this time.
[2019-12-29] MEDS ORDERED: lisinopriL 10 MG TAB PO SCH (10:45)
--- NOTE | 2019-12-29 12:18 | P.PN ---
Subjective Progress Note Date: 12/29/19 Patient states she is doing well. No further TIAs since last seen. Patient states yesterday she has some headache, but it was from lack of sleep. Last night she slept very well and now has no headache. No focal symptoms. Objective - Vital Signs Vital signs: Vital Signs Temp 98.5 F 12/29/19 06:00 Pulse 77 12/29/19 11:18 Resp 16 12/29/19 06:00 BP 195/90 12/29/19 11:18 Pulse Ox 97 12/29/19 11:18 Intake & Output 12/28/19 12/29/19 12/29/19 18:59 06:59 18:59 Intake Total 316.250 Output Total 0 Balance 316.250 Weight 49.895 kg Intake: Intake, IV Titration 316.250 Amount niCARdipine 20 mg In 316.250 Sodium Chloride 0.9% 192 ml @ 5 MG/HR 50 mls/hr IV .Q4H [facility] Rx#:[id number] Oral 0 Output: Urine 0 Other: Voiding Method Bedside Commode Bedside Commode # Voids 1 1 - Exam On examination mental status speech and language functions are normal. Cranial nerves are normal. Muscle strength no drift and the strength is normal. Sensations are equal. No ataxia. Tone and bulk of muscles normal. - Labs CBC & Chem 7: 12/29/19 06:47 12/29/19 06:47 Labs: Abnormal Lab Results - Last 24 Hours (Table) 12/29/19 12/29/19 Range/Units 06:47 06:47 Plt Count 469 H (150-450) k/uL Albumin/Globulin Ratio 1.40 L (1.60-3.17) g/dL Assessment and Plan Assessment: * Recurrent TIA, manifesting with left hemiparesis, resolved. Patient had 4 such spells today. Patient's current NIH stroke scale is 0. MRI of brain negative for stroke. * Hypertension urgency with accelerated hypertension * Hyperlipidemia * Tobacco user * Noncompliance with medication. Plan: * Continue dual antiplatelet medication with aspirin 81 mg and Plavix 75 mg. Symptoms are likely due to small vessel disease with ischemia in a small penetrating blood vessel (internal capsule or angelina). No acute stroke noted on MRI. * Optimize blood pressure to target <140/80. * MRI of the brain revealed periventricular and deep white matter changes, likely on the basis of chronic white matter ischemic change. No acute stroke. * Fasting lipid panel with cholesterol 270, LDL 166, HDL 89 triglycerides 75. Agree with high-dose statins Lipitor 80 mg. * Hemoglobin A1c 5.5 normal. * 2-D echo showed normal left ventricular size, mild concentric LVH, EF is 50- 55%. Left atrial size is normal. Mild aortic valve sclerosis. Bubble study was negative for PFO. Interatrial and interventricular septum intact. * Complete tobacco cessation. * Neurologically patient is stable, clear for discharge. * If patient has any recurrent focal symptoms, patient could still be a candidate for thrombolysis, if indicated in appropriate clinical setting, as her current MRI of the brain is completely normal.
[2019-12-29 14:41] VITALS: BP 170/98; PULSE 72; RESP 17; TEMP 98.3
[2019-12-29] MEDS ORDERED: HEPARIN SODIUM,PORCINE 5,000 UNIT/ML 1 ML VIAL SQ SCH (16:00)
== END 2019-12-29 17:30 | disposition home or self-care (01) | DRG 69 ==
LOC: EC 11:53 → 3SCARD 13:46 → 2SICU 14:45 → 4SSUR 12-28 13:24 → 5NMEDONC 12-28 20:51
PROVIDERS: ADMIT Internal Medicine; ATTEND Internal Medicine
DX: G45.9 Transient cerebral ischemic attack, unspecified (principal); I16.1 Hypertensive emergency; I11.9 Hypertensive heart disease without heart failure; E78.5 Hyperlipidemia, unspecified; J44.9 Chronic obstructive pulmonary disease, unspecified; I35.8 Other nonrheumatic aortic valve disorders; T50.906A Underdosing of unspecified drugs, medicaments and biological substances, initial encounter; F41.9 Anxiety disorder, unspecified; F17.210 Nicotine dependence, cigarettes, uncomplicated; Z71.6 Tobacco abuse counseling; Z91.128 Patient's intentional underdosing of medication regimen for other reason; Z86.73 Personal history of transient ischemic attack (TIA), and cerebral infarction without residual deficits; Z90.49 Acquired absence of other specified parts of digestive tract; Z87.19 Personal history of other diseases of the digestive system; Z98.890 Other specified postprocedural states; Z98.891 History of uterine scar from previous surgery; Y63.6 Underdosing and nonadministration of necessary drug, medicament or biological substance; W07.XXXA Fall from chair, initial encounter
CPT/HCPCS: 36415; 70450; 70496; 70498; 70551; 71046; 80048; 80053; 80061; 83036; 83735; 84436; 84439; 84443; 84484; 85025; 85027; 85610; 85730; 93005; 93306; 93308; 96365; 96366; 99285

== ENCOUNTER 2020-03-19 22:23 | Inpatient (IN) | payer MEDICARE ==
--- NOTE | 2020-03-19 22:48 | ED ---
General Adult HPI - General Chief complaint: Recheck/Abnormal Lab/Rx Stated complaint: Poss stroke Time Seen by Provider: 03/19/20 22:29 Source: patient Mode of arrival: wheelchair Limitations: no limitations - History of Present Illness Initial comments: This patient is a 64-year-old woman who is brought to be evaluated after she had a brief loss of consciousness and slumped over to her left. The patient had been sitting and talking with family member. The patient does not recall the episode, but it was described to EMS who was called to the scene. The patient reportedly had seemed to pass out and slumped over to her left. They were concerned that she was having a stroke. On arrival, the patient is conscious and alert and is denying any complaints. She states that she feels otherwise well. Onset/Timin -: minutes(s) Location: chest Severity scale (1-10): 0 Consistency: now resolved Improves with: none Worsens with: none Treatments Prior to Arrival: none - Related Data Home Medications Medication Instructions Recorded Confirmed Atenolol [Tenormin] 50 mg PO DAILY 03/20/20 03/20/20 Chlorthalidone [Hygroton] 25 mg PO DAILY 03/20/20 03/20/20 Ergocalciferol [Vitamin D2 (1250 1,250 mcg PO Q28D 03/20/20 03/20/20 Mcg = [id number] Iu)] cloNIDine HCL [Catapres] 0.2 mg PO TID 03/20/20 03/20/20 lisinopriL [Zestril] 40 mg PO DAILY 03/20/20 03/20/20 prednisoLONE ACETATE [Pred Mild] 2 drops RIGHT EYE BID 03/20/20 03/20/20 Previous Rx's Medication Instructions Recorded Aspirin 81 mg PO DAILY #30 chew 12/28/19 Atorvastatin [Lipitor] 80 mg PO DAILY #30 tab 12/28/19 Allergies Allergy/AdvReac Type Severity Reaction Status Date / Time No Known Allergies Allergy Verified 03/20/20 09:15 Review of Systems ROS Statement: Those systems with pertinent positive or pertinent negative responses have been documented in the HPI. ROS Other: All systems not noted in ROS Statement are negative. Constitutional: Denies: fever, chills, weakness Eyes: Denies: vision change Respiratory: Denies: cough, dyspnea Cardiovascular: Reports: as per HPI, chest pain. Denies: palpitations, orthopnea, edema, syncope Gastrointestinal: Denies: abdominal pain, vomiting, diarrhea Genitourinary: Denies: dysuria, hematuria Musculoskeletal: Denies: back pain Skin: Denies: rash Neurological: Denies: headache, weakness, numbness, paresthesias Past Medical History Past Medical History: CVA/TIA, Hypertension History of Any Multi-Drug Resistant Organisms: None Reported Past Surgical History: Appendectomy, Section, Tonsillectomy Past Anesthesia/Blood Transfusion Reactions: No Reported Reaction Past Psychological History: Anxiety Smoking Status: Current every day smoker Past Alcohol Use History: Daily Past Drug Use History: Marijuana - Past Family History Brother(s) Family Medical History: Diabetes Mellitus General Exam Limitations: no limitations General appearance: alert, in no apparent distress Head exam: Present: atraumatic, normocephalic Eye exam: Present: normal appearance, EOMI, conjunctival injection, other (Patient is wearing a protective shield over left eye). Absent: scleral icterus ENT exam: Present: normal oropharynx, mucous membranes moist Neck exam: Present: normal inspection, full ROM Respiratory exam: Present: normal lung sounds bilaterally. Absent: respiratory distress, wheezes, rales, rhonchi, stridor Cardiovascular Exam: Present: regular rate, normal rhythm, normal heart sounds. Absent: systolic murmur, diastolic murmur, rubs, gallop GI/Abdominal exam: Present: soft. Absent: distended, tenderness, guarding, rebound, rigid, mass Extremities exam: Present: normal inspection, normal capillary refill. Absent: pedal edema, calf tenderness Back exam: Present: normal inspection. Absent: CVA tenderness (R), CVA tenderness (L) Neurological exam: Present: alert, oriented X3, CN II-XII intact. Absent: motor sensory deficit Skin exam: Present: warm, dry, intact, normal color. Absent: rash Course Vital Signs 03/19/20 03/19/20 03/19/20 22:23 22:40 23:30 Temperature 98.5 F Pulse Rate 81 74 56 L Respiratory 18 16 16 Rate Blood Pressure 215/105 202/110 130/83 O2 Sat by Pulse 97 100 98 Oximetry 03/20/20 03/20/20 00:00 00:55 Temperature 98.5 F Pulse Rate 51 L 51 L Respiratory 16 18 Rate Blood Pressure 136/87 120/70 O2 Sat by Pulse 98 98 Oximetry EKG Findings - EKG Results: EKG: interpreted by ERMD, sinus rhythm (Rate 71 bpm), normal axis, normal QRS - Blocks, [place], Hypertrophy, ST Abn: Repolarization changes or abnormalities: ST or T wave suggestive of ischemia (Possible inferolateral ischemia) Medical Decision Making - Medical Decision Making This patient is a 64-year-old woman who had a brief unexplained episode of passi ng out. Family was concerned that she may be having a stroke, and the workup here not suggestive of that, but finding patient to be hyponatremic. Sodium replacement is started here and case discussed with admitting physician. - Lab Data Result diagrams: 03/19/20 22:49 03/20/20 10:05 Lab Results 03/19/20 03/19/20 03/19/20 Range/Units 22:49 22:49 22:49 WBC 10.4 (3.8-10.6) k/uL RBC 4.49 (3.80-5.40) m/uL Hgb 13.8 (11.4-16.0) gm/dL Hct 40.1 (34.0-46.0) % MCV 89.3 (80.0-100.0) fL MCH 30.8 (25.0-35.0) pg MCHC 34.4 (31.0-37.0) g/dL RDW 12.1 (11.5-15.5) % Plt Count 438 (150-450) k/uL MPV 6.5 Neutrophils % 59 % Lymphocytes % 31 % Monocytes % 5 % Eosinophils % 4 % Basophils % 1 % Neutrophils # 6.2 (1.3-7.7) k/uL Lymphocytes # 3.2 (1.0-4.8) k/uL Monocytes # 0.5 (0-1.0) k/uL Eosinophils # 0.4 (0-0.7) k/uL Basophils # 0.1 (0-0.2) k/uL PT 9.5 (9.0-12.0) sec INR 0.9 (<1.2) APTT 24.4 (22.0-30.0) sec Sodium 118 L* (137-145) mmol/L Potassium 3.2 L (3.5-5.1) mmol/L Chloride 80 L (98-107) mmol/L Carbon Dioxide 24 (22-30) mmol/L Anion Gap 14 mmol/L BUN 29 H (7-17) mg/dL Creatinine 1.05 H (0.52-1.04) mg/dL Est GFR (CKD-EPI)AfAm 64 (>60 ml/min/1.73 sqM) Est GFR (CKD-EPI)NonAf 56 (>60 ml/min/1.73 sqM) Glucose 160 H (74-99) mg/dL Estimated Ave Glu mg/dL Hemoglobin A1c (4.0-6.0) % Osmolality (280-301) mosm/kg Calcium 9.6 (8.4-10.2) mg/dL Total Bilirubin 0.5 (0.2-1.3) mg/dL AST 39 H (14-36) U/L ALT 26 (4-34) U/L Alkaline Phosphatase 100 (38-126) U/L Troponin I (0.000-0.034) ng/mL Total Protein 7.7 (6.3-8.2) g/dL Albumin 4.7 (3.5-5.0) g/dL TSH (0.465-4.680) mIU/L 03/19/20 03/19/20 03/19/20 Range/Units 22:49 22:49 22:49 WBC (3.8-10.6) k/uL RBC (3.80-5.40) m/uL Hgb (11.4-16.0) gm/dL Hct (34.0-46.0) % MCV (80.0-100.0) fL MCH (25.0-35.0) pg MCHC (31.0-37.0) g/dL RDW (11.5-15.5) % Plt Count (150-450) k/uL MPV Neutrophils % % Lymphocytes % % Monocytes % % Eosinophils % % Basophils % % Neutrophils # (1.3-7.7) k/uL Lymphocytes # (1.0-4.8) k/uL Monocytes # (0-1.0) k/uL Eosinophils # (0-0.7) k/uL Basophils # (0-0.2) k/uL PT (9.0-12.0) sec INR (<1.2) APTT (22.0-30.0) sec Sodium (137-145) mmol/L Potassium (3.5-5.1) mmol/L Chloride (98-107) mmol/L Carbon Dioxide (22-30) mmol/L Anion Gap mmol/L BUN (7-17) mg/dL Creatinine (0.52-1.04) mg/dL Est GFR (CKD-EPI)AfAm (>60 ml/min/1.73 sqM) Est GFR (CKD-EPI)NonAf (>60 ml/min/1.73 sqM) Glucose (74-99) mg/dL Estimated Ave Glu mg/dL 117 Hemoglobin A1c 5.7 (4.0-6.0) % Osmolality 262 L (280-301) mosm/kg Calcium (8.4-10.2) mg/dL Total Bilirubin (0.2-1.3) mg/dL AST (14-36) U/L ALT (4-34) U/L Alkaline Phosphatase (38-126) U/L Troponin I <0.012 (0.000-0.034) ng/mL Total Protein (6.3-8.2) g/dL Albumin (3.5-5.0) g/dL TSH 1.960 (0.465-4.680) mIU/L Disposition Clinical Impression: Hyponatremia Disposition: ADMITTED IP TO THIS HOSP Condition: Stable
[2020-03-19 23:06] LABS: Basophils # (A) 0.1 k/uL (0-0.2); Basophils % (A) 1 %; Eosinophils # (A) 0.4 k/uL (0-0.7); Eosinophils % (A) 4 %; HCT 40.1 % (34.0-46.0); HGB 13.8 gm/dL (11.4-16.0); Lymphocytes # (A) 3.2 k/uL (1.0-4.8); Lymphocytes % (A) 31 %; MCH 30.8 pg (25.0-35.0); MCHC 34.4 g/dL (31.0-37.0); MCV 89.3 fL (80.0-100.0); Mean Platelet Volume 6.5; Monocytes # (A) 0.5 k/uL (0-1.0); Monocytes % (A) 5 %; Neutrophils # (A) 6.2 k/uL (1.3-7.7); Neutrophils % (A) 59 %; Platelet Count 438 k/uL (150-450); RBC 4.49 m/uL (3.80-5.40); RDW 12.1 % (11.5-15.5); WBC 10.4 k/uL (3.8-10.6)
[2020-03-19 23:08] LABS: Albumin 4.7 g/dL (3.5-5.0); Calcium 9.6 mg/dL (8.4-10.2); Potassium 3.2 mmol/L (3.5-5.1); Total Bilirubin 0.5 mg/dL (0.2-1.3); Total Protein 7.7 g/dL (6.3-8.2)
[2020-03-19 23:11] LABS: INR 0.9 (<1.2); Partial Thromboplastin Time 24.4 sec (22.0-30.0); Prothrombin Time 9.5 sec (9.0-12.0)
--- NOTE | 2020-03-19 23:13 | XR ---
EXAMINATION TYPE: XR chest 2V DATE OF EXAM: 03/19/2020 COMPARISON: 12/27/2019 HISTORY: Syncope TECHNIQUE: 2 views FINDINGS: There is no heart failure nor confluent pneumonic infiltrate. Costophrenic angles are clear . There are chest leads. Bony thorax appears intact. IMPRESSION: No active cardiopulmonary disease. Normal heart. No change.
--- NOTE | 2020-03-19 23:20 | CT ---
EXAMINATION TYPE: CT brain wo con for TPA DATE OF EXAM: 03/19/2020 COMPARISON: 12/27/2019 HISTORY: Weakness CT DLP: mGycm Automated exposure control for dose reduction was used. Ventricles have normal size. There is 3 cm area of white matter hypodensity left posterior temporal l obe extending into the occipital lobe. There is no mass effect nor midline shift. There is no sign of intracranial hemorrhage. The calvarium is intact. The skull base is intact. There is symmetric mild anterior thalamic calcification. IMPRESSION: There is some chronic small vessel ischemia and old lacunar infarct left posterior temporal lobe unch anged compared to old exam. No acute intracranial abnormality.
[2020-03-19] MEDS ORDERED: SODIUM CHLORIDE 0.9% 1,000 ML IV ONE (23:26)
[2020-03-19] MEDS ORDERED: SODIUM CHLORIDE 0.9% 1,000 ML IV STA (23:29)
[2020-03-19] MEDS ORDERED: ONDANSETRON 4 MG/2 ML VIAL IVP PRN (23:42)
[2020-03-19] MEDS ORDERED: NALOXONE 0.4 MG/ML 1 ML VIAL IV PRN (23:42)
[2020-03-19] MEDS ORDERED: ACETAMINOPHEN TAB 325 MG TAB PO PRN (23:42)
[2020-03-19] MEDS ORDERED: atenoloL 25 MG TAB PO PRN (23:44)
[2020-03-20 01:36] LABS: Creatinine,Urine Random 23.2 mg/dL
[2020-03-20] MEDS: ATORVASTATIN 80 MG TAB PO SCH (08:07)
[2020-03-20] MEDS: ASPIRIN 81 MG PO SCH (08:07)
[2020-03-20] MEDS ORDERED: CLOPIDOGREL 75 MG TAB PO SCH (09:00)
[2020-03-20] MEDS ORDERED: lisinopriL 20 MG TAB PO SCH (09:00)
[2020-03-20 10:24] LABS: African American GFR (CKD) 74 (>60 ml/min/1.73 sqM); Anion Gap 8 mmol/L; Blood Urea Nitrogen 24 mg/dL (7-17); Calcium 8.8 mg/dL (8.4-10.2); Carbon Dioxide 29 mmol/L (22-30); Chloride 88 mmol/L (98-107); Glucose 99 mg/dL (74-99); Non-African American GFR(CKD) 64 (>60 ml/min/1.73 sqM); Potassium 3.3 mmol/L (3.5-5.1); Sodium 125 mmol/L (137-145)
--- NOTE | 2020-03-20 14:03 | US ---
EXAMINATION TYPE: US carotid duplex BILAT DATE OF EXAM: 03/20/2020 COMPARISON: NONE CLINICAL HISTORY: syncope. EXAM MEASUREMENTS: RIGHT: Peak Systolic Velocity (PSV) cm/sec ----- Right CCA: 76.7 ----- Right ICA: 82.0 ----- Right ECA: 129. ICA/CCA ratio: 1.07 RIGHT: End Diastole cm/sec ----- Right CCA: 19.5 ----- Right ICA: 28.0 ----- Right ECA: 18.9 LEFT: Peak Systolic Velocity (PSV) cm/sec ----- Left CCA: 81.7 ----- Left ICA: 94.6 ----- Left ECA: 203 ICA/CCA ratio: 1.16 LEFT: End Diastole cm/sec ----- Left CCA: 19.0 ----- Left ICA: 34.0 ----- Left ECA: 17.9 VERTEBRALS (direction of flow): Right Vertebral: Antegrade Left Vertebral: Antegrade Rhythm: Normal Mild to moderate atherosclerotic changes without significant velocity increases. IMPRESSION: 1. Mild to moderate atherosclerotic changes. No significant hemodynamic stenosis as visualized. Criteria for Assigning % of Stenosis / Diameter reduction (Estimation based on the indirect measurements of the internal carotid artery velocities (ICA PSV). 1. Normal (no stenosis)=ICA PSV < 125 cm/s: ratio < 2.0: ICA EDV<40 cm/s. 2. Less than 50% stenosis=ICA PSV < 125 cm/s: ratio < 2.0: ICA EDV<40 cm/s. 3. 50 to 69% stenosis=ICA PSV of 125 to 230 cm/s: ration 2.0 ? 4.0: ICA EDV 40-100 cm/s. 4. Greater than 70% stenosis to near occlusion= ICA PSV > 230 cm/s: ratio > 4.0: ICA EDV > 100 cm/s. 5. Near occlusion= ICA PSV velocities may be low or undetectable: variable ratio and ICA EDV. 6. Total occlusion=unable to detect flow.
[2020-03-20] MEDS: cloNIDine HCL 0.2 MG TAB PO SCH ×2 (15:37→21:35)
--- NOTE | 2020-03-20 18:56 | PN ---
PROGRESS NOTE DATE OF SERVICE: 03/20/2020 CHIEF COMPLAINT: Syncopal episode. HISTORY OF PRESENT ILLNESS: This lady is doing well. She has had no problems at all. She feels fine. She has had no headaches, shortness of breath, palpitations, dizziness, lightheadedness, etc. PHYSICAL EXAMINATION: Vital signs are normal. Chest is clear. Cardiac exam is unchanged with no murmur. Abdomen is soft, nontender. Extremities are normal. Neurologically she is intact. IMPRESSION: Syncopal episode. PLAN: 1. Various studies have been ordered. 2. Repeat electrolytes. 3. Increase activity. MMODL / IJN: [id number] /
--- NOTE | 2020-03-20 19:02 | HP ---
HISTORY AND PHYSICAL CHIEF COMPLAINT: Syncopal episode and electrolyte imbalance. HISTORY OF PRESENT ILLNESS: This is another admission for this 64-year-old white female. She apparently was sitting and suddenly slumped over and lost consciousness. She came to and was brought in by ambulance to the emergency room. She does not remember having any aura, headache, focal neurologic signs or symptoms, change in the vision or the hearing, headache, chest pain, palpitations, shortness of breath, incontinence, etc. She has had a previous TIA. She has hypertension and she continues to smoke fairly heavily. In the emergency room she had low potassium and sodium. She denies any muscle cramps, fever, chills, urinary complaints, etc. She has been feeling fine. REVIEW OF SYSTEMS: She denies any neurologic signs or symptoms, change in vision or hearing, chest pain, shortness of breath, cough, hemoptysis, orthopnea, PND, palpitations, abdominal pain, nausea, vomiting, hematemesis, melena, hematochezia, frequency, urgency, dysuria, incontinence, nocturia, hematuria, diabetes, etc. Past medical history, family history, and personal and social histories are otherwise essentially unremarkable. She just had surgery on her left eye recently for a cataract. She is NOT ALLERGIC TO ANY MEDICATION. MEDICATIONS: Her medications include chlorthalidone 25 mg once a day, atenolol 50 mg once a day, lisinopril 40 mg once a day, atorvastatin 80 mg once a day, vitamin D 50,000 units a month, and 81 mg of aspirin a day. She does smoke. PHYSICAL EXAMINATION: On admission, her blood pressure was quite high at around 200/115. Pulse was 85 and regular. Respirations were 32 and she was afebrile. In general she appeared to be small, slender, dehydrated, awake and alert and in no acute distress. Head, ears, eyes, nose, mouth and throat were normal. Carotids were normal with no bruits. Neck veins were not distended. Chest was clear to auscultation and percussion. Cardiac exam demonstrated normal sinus rhythm with a grade 2 systolic murmur being heard over the precordial area in the region of the aortic valve. There was no S3 or S4. The abdomen was flat, soft and nontender without visceromegaly or masses. Bowel sounds were present. Extremities were normal. Neurologically she was intact. Cranial nerves were intact from 2 to 12 and sensory motor exam was normal. She was admitted to the hospital with the diagnoses: 1. Brief episode of syncope, etiology unknown. 2. Hypokalemia. 3. Hyponatremia. 4. Hypertension. 5. Rule out seizure disorder. 6. Chronic obstructive pulmonary disease. 7. Rule out myocardial ischemia. PLAN: 1. Bedrest. 2. IV fluids. 3. Frequent monitoring of her neurologic status and vital signs. 4. Troponins. 5. Carotid duplex imaging. 6. Echocardiogram. MMODL / IJN: [id number] /
[2020-03-20] MEDS: prednisoLONE ACETATE 1% OPHTH DROPS 5 ML BTL RIGHT EYE SCH (21:35)
[2020-03-21 00:49] LABS: Hemoglobin A1C 5.7 % (4.0-6.0)
[2020-03-21] MEDS: cloNIDine HCL 0.2 MG TAB PO SCH (05:36)
[2020-03-21] MEDS: CHLORTHALIDONE 25 MG TAB PO SCH (05:37)
[2020-03-21] MEDS: atenoloL 50 MG TAB PO SCH (05:37)
[2020-03-21] MEDS: lisinopriL 20 MG TAB PO SCH (05:38)
[2020-03-21] MEDS: ATORVASTATIN 80 MG TAB PO SCH (09:21)
[2020-03-21] MEDS: ASPIRIN 81 MG PO SCH (09:21)
[2020-03-21] MEDS: prednisoLONE ACETATE 1% OPHTH DROPS 5 ML BTL RIGHT EYE SCH ×2 (09:42→21:47)
[2020-03-21] MEDS: cloNIDine HCL 0.1 MG TAB PO SCH ×3 (11:23→21:47)
--- NOTE | 2020-03-21 12:49 | ECHOF ---
Referral Reason:syncope, murmur MEASUREMENTS -------- HEIGHT: 152.4 cm WEIGHT: 47.2 kg BP: 188/89 RVIDd: 3.0 cm (< 3.3) IVSd: 1.3 cm (0.6 - 1.1) LVIDd: 3.7 cm (3.9 - 5.3) LVPWd: 1.2 cm (0.6 - 1.1) IVSs: 1.5 cm LVIDs: 2.7 cm LVPWs: 1.6 cm LAESV Index (A-L): 42.18 ml/m Ao Diam: 2.5 cm (2.0 - 3.7) AV Cusp: 1.6 cm (1.5 - 2.6) MV EXCURSION: 16.162 mm (> 18.000) MV EF SLOPE: 90 mm/s (70 - 150) EPSS: 0.5 cm MV E Michael: 0.74 m/s MV DecT: 244 ms MV A Michael: 0.89 m/s MV E/A Ratio: 0.83 RAP: 5.00 mmHg RVSP: 23.31 mmHg FINDINGS -------- Sinus rhythm. Resting bradycardia (HR<60bpm). This was a technically adequate study. The left ventricular size is normal. There is mild concentric left ventricular hypertrophy. Overa ll left ventricular systolic function is low-normal with, an EF between 50 - 55 %. The right ventricle is normal in size. LA is severely dilated >40 ml/m2 The right atrial size is normal. Interatrial and interventricular septum intact. The aortic valve is trileaflet, and appears structurally normal. No aortic stenosis or regurgitation. The mitral valve leaflets are mildly thickened. Moderate mitral regurgitation is present. [id number]-[id number] tricuspid regurgitation present. Right ventricular systolic pressure is normal at < 35 mmHg. The right ventricular systolic pressure, as measured by Doppler, is 23.31mmHg. There is no pulmonic regurgitation present. The aortic root size is normal. Normal inferior vena cava with normal inspiratory collapse consistent with estimated right atrial pre ssure of 5 mmHg. There is no pericardial effusion. CONCLUSIONS -------- 1. There is mild concentric left ventricular hypertrophy. 2. Overall left ventricular systolic function is low-normal with, an EF between 50 - 55 %. 3. LA is severely dilated >40 ml/m2 4. The aortic valve is trileaflet, and appears structurally normal. No aortic stenosis or regurgitati on. 5. Moderate mitral regurgitation is present. 6. Deij-pi-jlzgramx tricuspid regurgitation present. 7. There is no pericardial effusion. TRANSFER CAR OPERATOR DRIER: Pratima Cordova RDCS
[2020-03-21] MEDS: hydrALAZINE HCL 10 MG TAB PO SCH ×3 (13:36→21:50)
--- NOTE | 2020-03-21 18:38 | PN ---
PROGRESS NOTE CHIEF COMPLAINT: Syncopal episode and hypertension. HISTORY OF PRESENT ILLNESS: This lady was doing well, then last night in the middle of the night her blood pressure skyrocketed once again. She did not have any syncope. PHYSICAL EXAMINATION: Chest is clear. Cardiac exam is normal. Abdomen is soft, nontender. IMPRESSION: 1. Syncope. 2. Uncontrolled hypertension. PLAN: 1. Increase her antihypertensives. 2. Wait for further studies to be returned. MMODL / IJN: [id number] /
[2020-03-22] MEDS: atenoloL 50 MG TAB PO SCH (07:40)
[2020-03-22] MEDS: ASPIRIN 81 MG PO SCH (07:40)
[2020-03-22] MEDS: ATORVASTATIN 80 MG TAB PO SCH (07:41)
[2020-03-22] MEDS: CHLORTHALIDONE 25 MG TAB PO SCH (07:41)
[2020-03-22] MEDS: cloNIDine HCL 0.1 MG TAB PO SCH ×3 (07:42→20:53)
[2020-03-22] MEDS: hydrALAZINE HCL 10 MG TAB PO SCH ×2 (07:42→12:50)
[2020-03-22] MEDS: prednisoLONE ACETATE 1% OPHTH DROPS 5 ML BTL RIGHT EYE SCH ×2 (07:43→20:53)
[2020-03-22] MEDS: lisinopriL 20 MG TAB PO SCH (07:43)
[2020-03-22] MEDS ORDERED: hydrALAZINE HCL 10 MG TAB PO ONE (13:00)
[2020-03-22] MEDS ORDERED: hydrALAZINE HCL 50 MG TAB PO SCH (13:00)
--- NOTE | 2020-03-22 13:36 | US ---
EXAMINATION TYPE: US kidneys/renal and bladder DATE OF EXAM: 03/22/2020 COMPARISON: NONE CLINICAL HISTORY: hypertention. EXAM MEASUREMENTS: Right Kidney: 10.4 x 4.7 x 3.9 cm Left Kidney: 7.8 x 4.7 x 4.4 cm Right Kidney: No hydronephrosis or masses seen Left Kidney: Small in size as compared to right, upper pole cyst measures 1.4 x 1.7 x 1.4 cm. Bladder: wnl Bilateral Jets seen: No IMPRESSION: 1. Left renal cyst
--- NOTE | 2020-03-22 14:52 | PN ---
PROGRESS NOTE CHIEF COMPLAINT: Syncope and hypertension. HISTORY OF PRESENT ILLNESS: This lady elevated her blood pressure again last night significantly. She has had no syncope, chest pain, neurologic problems, etc. PHYSICAL EXAMINATION: Chest is clear. The cardiac exam is normal. Abdomen is soft, nontender. IMPRESSION: 1. Syncope. 2. Hypertension. PLAN: Increase antihypertensive management by increasing hydralazine to 50 mg t.i.d. and continue to increase activity. MMODL / IJN: [id number] /
--- NOTE | 2020-03-22 15:31 | CDI ---
Documentation Clarification Form Date: 03/22/2020 02:50:07 PM From: Polina You RN, CCDS Admit Date: 03/19/2020 11:42:00 PM Patient Name: Jocelynn Thomson Visit Number: [id number] Discharge Date: ATTENTION: The Clinical Documentation Specialists (CDI) and [facility] Coding Staff appreciate your assistance in clarifying documentation. Please respond to the clarification below the line at the bottom and electronically sign. The CDI & [facility] Coding staff will review the response and follow-up if needed. Please note: Queries are made part of the Legal Health Record. If you have any questions, please contact the author of this message via ITS. Dr. Grady King Uncontrolled hypertension is documented in the progress note on 03/21 and on admission was described as quite high. Please render your opinion the type of hypertension you are treating. History/Risk Factors: CVA, TIA, Hypertension, TIA, current smoker Clinical Indicators: 64-year-old female present to ED via EMS after reported suddenly slumped over and lost consciousness. She denied headache, focal neurologic signs or symptoms. 03/19 Vital signs on admission: 200/115 85 32 98.5; 202/110 74 16; 130/83 56 16 03/19 CT Brain: There is some chronic small vessel ischemia and old lacunar infarct left posterior temporal lobe unchanged compared to old exam. 03/19 CXR: No active cardiopulmonary disease 03/20 Carotid Doppler: Mild to moderate atherosclerotic changes. No significant hemodynamic stenosis is visualized 03/20 ECHO: Overall left ventricular systolic function is low-normal with, an EF between 50-55 % 03/19 Lab findings: WBC 10.4, Sodium 118, Potassium 3.2, Treatment: .9NS 1,000 IV Bolus Tenormin 25 MG PO (03/19) Catapres 0.2 MG PO TID (03/20-03/21) Catapres 0.3 MG PO TID start 03/21 Apresoline 40MG PO Once 03/22 then 50 MG PO TID Hygroton 25 MG PO Daily In your professional opinion, can you please clarify uncontrolled hypertension? Hypertensive Urgency Other, please specify Unable to determine (Last Revision: May 2017) MTDD
[2020-03-22] MEDS: hydrALAZINE HCL 50 MG TAB PO SCH ×2 (18:01→20:53)
[2020-03-23] MEDS: ASPIRIN 81 MG PO SCH (09:40)
[2020-03-23] MEDS: cloNIDine HCL 0.1 MG TAB PO SCH (09:40)
[2020-03-23] MEDS: lisinopriL 20 MG TAB PO SCH (09:40)
[2020-03-23] MEDS: atenoloL 50 MG TAB PO SCH (09:41)
[2020-03-23] MEDS: CHLORTHALIDONE 25 MG TAB PO SCH (09:41)
[2020-03-23] MEDS: hydrALAZINE HCL 50 MG TAB PO SCH ×3 (09:41→21:07)
[2020-03-23] MEDS: ATORVASTATIN 80 MG TAB PO SCH (09:41)
[2020-03-23] MEDS: prednisoLONE ACETATE 1% OPHTH DROPS 5 ML BTL RIGHT EYE SCH ×2 (09:58→21:07)
[2020-03-23 10:35] LABS: African American GFR (CKD) 75 (>60 ml/min/1.73 sqM); Anion Gap 11 mmol/L; Blood Urea Nitrogen 24 mg/dL (7-17); Calcium 9.4 mg/dL (8.4-10.2); Carbon Dioxide 27 mmol/L (22-30); Chloride 88 mmol/L (98-107); Glucose 86 mg/dL (74-99); Non-African American GFR(CKD) 65 (>60 ml/min/1.73 sqM); Potassium 3.9 mmol/L (3.5-5.1); Sodium 126 mmol/L (137-145)
--- NOTE | 2020-03-23 14:53 | P.PN ---
Subjective Progress Note Date: 03/23/20 This is a 64-year-old female who follows in the outpatient setting with Dr. King and is being closely monitored. Patient recently admitted for hypertension with hypertensive urgency along with an episode of syncope. Patient underwent a 2-D echo showing left ventricular systolic function showing low to normal with an EF between 50 and 55% with severely dilated LA, mild concentric left ventricular hypertrophy, moderate mitral regurgitation along with mild to moderate tricuspid regurgitation present. Patient also underwent carotid Doppler showing mild to moderate atherosclerotic changes with no s ignificant hemodynamic stenosis and without significant velocity increases. Patient's sodium this morning was repeated and found to be 126 with a potassium of 3.9 and current creatinine is 0.93. Troponins have been negative. Patient continues to be hypertensive with most recent blood pressure being 162/93. She is currently maintained on atenolol 50 mg, chlorthalidone 25 mg, Catapres 0.3 mg 3 times daily, hydralazine 50 mg 3 times daily, and lisinopril and will continue. Will decrease Catapres to 0.2 mg 3 times daily and add Procardia XL 30 mg and monitor closely. Patient denies any chest pain, shortness of breath, or palpitations. Patient denies any dizziness or lightheadedness. Patient denies any headache at this time. Will place the patient on restrictions and repeat a.m. labs. Review of systems: Constitutional: No reports of fatigue, fever, or chills Cardiovascular: No reports of chest pain or palpitations Respiratory: No reports of shortness of breath or cough GI: No reports of nausea, vomiting, or diarrhea : No reports of dysuria or retention Neurovascular: No reports of weakness or numbness All medications have been reviewed Objective - Vital Signs Vital signs: Vital Signs Temp 97.7 F 03/23/20 13:59 Pulse 61 03/23/20 14:01 Resp 14 03/23/20 13:59 BP 162/93 03/23/20 13:59 Pulse Ox 97 03/23/20 13:59 Intake & Output 03/22/20 03/23/20 03/23/20 18:59 06:59 18:59 Intake Total 600 480 Balance 600 480 Intake: Oral 600 480 Other: Voiding Method Toilet Toilet Toilet # Voids 3 3 - Exam Gen: This is a 64-year-old female currently sitting up at the side of the bed awake, alert and oriented 3, well-developed, thin built. HEENT: Head is atraumatic, normocephalic. Pupils equal, round. Sclerae is anicteric. NECK: Supple. No JVD. No lymphadenopathy. No thyromegaly. LUNGS: Diminished breath sounds bilaterally with no wheezing or rhonchi noted. No intercostal retractions. HEART: S1, S2 are present ABDOMEN: Soft. Bowel sounds are present. No masses. No tenderness. EXTREMITIES: No pedal edema. No calf tenderness. NEUROLOGICAL: Patient is awake, alert and oriented x3. Cranial nerves 2 through 12 are grossly intact. - Labs CBC & Chem 7: 03/19/20 22:49 03/23/20 10:10 Labs: Abnormal Lab Results - Last 24 Hours (Table) 03/23/20 Range/Units 10:10 Sodium 126 L (137-145) mmol/L Chloride 88 L (98-107) mmol/L BUN 24 H (7-17) mg/dL Assessment and Plan Assessment: Syncopal episode, etiology unknown Hypertension with hypertensive urgency, present on admission Hyponatremia Hypokalemia, improved History of TIA Chronic obstructive pulmonary disease, not in acute exacerbation Ruled out myocardial ischemia Continued ongoing nicotine dependence History of cataracts with surgery of the left eye Plan: Continue with current medication regimen. Procardia XL added and will decrease Catapres to 0.2 mg 3 times daily in the hopes of slowly weaning off of Catapres in the outpatient setting. Patient to continue with other home medications as previously ordered. IV fluids have been discontinued and patient will continue with fluid restrictions of 1500 mL daily as sodium was found to be 126. Will repeat a.m. labs and continue to monitor closely. Increase activity as tolerated and encourage oral protein intake. If blood pressure is more managed and sodium improved will likely discharge in 24 hours. Further recommendations to follow.
[2020-03-23] MEDS: cloNIDine HCL 0.2 MG TAB PO SCH ×2 (15:46→21:07)
[2020-03-24] MEDS: ASPIRIN 81 MG PO SCH (08:26)
[2020-03-24] MEDS: hydrALAZINE HCL 50 MG TAB PO SCH ×3 (08:26→20:40)
[2020-03-24] MEDS: atenoloL 50 MG TAB PO SCH (08:27)
[2020-03-24] MEDS: cloNIDine HCL 0.2 MG TAB PO SCH ×2 (08:27→20:40)
[2020-03-24] MEDS: lisinopriL 20 MG TAB PO SCH (08:27)
[2020-03-24] MEDS: CHLORTHALIDONE 25 MG TAB PO SCH (08:27)
[2020-03-24] MEDS: ATORVASTATIN 80 MG TAB PO SCH (08:27)
[2020-03-24] MEDS: prednisoLONE ACETATE 1% OPHTH DROPS 5 ML BTL RIGHT EYE SCH ×2 (08:28→20:39)
[2020-03-24 11:55] LABS: African American GFR (CKD) 42 (>60 ml/min/1.73 sqM); Anion Gap 8 mmol/L; Blood Urea Nitrogen 30 mg/dL (7-17); Calcium 8.9 mg/dL (8.4-10.2); Carbon Dioxide 26 mmol/L (22-30); Chloride 92 mmol/L (98-107); Glucose 113 mg/dL (74-99); Non-African American GFR(CKD) 37 (>60 ml/min/1.73 sqM); Potassium 4.1 mmol/L (3.5-5.1); Sodium 126 mmol/L (137-145)
[2020-03-25] MEDS: SODIUM CHLORIDE 0.9% 1,000 ML IV SCH ×2 (07:42→07:45)
[2020-03-25] MEDS: hydrALAZINE HCL 50 MG TAB PO SCH ×3 (07:43→21:40)
[2020-03-25] MEDS: cloNIDine HCL 0.2 MG TAB PO SCH ×2 (07:43→21:40)
[2020-03-25] MEDS: atenoloL 25 MG TAB PO SCH (07:44)
[2020-03-25] MEDS: ATORVASTATIN 80 MG TAB PO SCH (07:44)
[2020-03-25] MEDS: ASPIRIN 81 MG PO SCH (07:44)
[2020-03-25] MEDS: prednisoLONE ACETATE 1% OPHTH DROPS 5 ML BTL RIGHT EYE SCH ×2 (07:44→21:41)
[2020-03-25] MEDS: lisinopriL 20 MG TAB PO SCH (07:44)
[2020-03-25 10:05] LABS: HCT 39.6 % (37.2-46.3); HGB 13.2 g/dL (12.0-15.0); Lymphocytes % (A) 22.1 %; MCH 30.2 pg (27.0-32.0); MCHC 33.3 g/dL (32.0-37.0); MCV 90.6 fL (80.0-97.0); Mean Platelet Volume 8.8 fL (9.5-12.2); Monocytes % (A) 8.2 %; Neutrophils % (A) 64.8 %; Platelet Count 432 X 10*3/uL (140-440); RBC 4.37 X 10*6/uL (4.10-5.20); RDW 12.3 % (11.5-14.5)
[2020-03-25 10:06] LABS: Basophils # (A) 0.07 X 10*3/uL (0.00-0.10); Basophils % (A) 0.6 %; Eosinophils # (A) 0.48 X 10*3/uL (0.04-0.35); Lymphocytes # (A) 2.67 X 10*3/uL (0.90-5.00); Monocytes # (A) 0.99 X 10*3/uL (0.20-1.00); Neutrophils # (A) 7.85 X 10*3/uL (1.80-7.70)
[2020-03-25 10:12] LABS: African American GFR (CKD) 41.9 (60.0-200.0); Anion Gap 8.7 mmol/L (4.00-12.00); BUN/Creat Ratio 25.33 Ratio (12.00-20.00); Calcium 9.8 mg/dL (8.7-10.3); Carbon Dioxide 26.3 mmol/L (21.6-31.8); Non-African American GFR(CKD) 36.2 (60.0-200.0); Potassium 4.1 mmol/L (3.5-5.5)
--- NOTE | 2020-03-26 02:36 | P.PN ---
Subjective Progress Note Date: 03/24/20 This is a 64-year-old female who follows in the outpatient setting with Dr. King and is being closely monitored. Patient recently admitted for hypertension with hypertensive urgency along with an episode of syncope. Patient underwent a 2-D echo showing left ventricular systolic function showing low to normal with an EF between 50 and 55% with severely dilated LA, mild concentric left ventricular hypertrophy, moderate mitral regurgitation along with mild to moderate tricuspid regurgitation present. Patient also underwent carotid Doppler showing mild to moderate atherosclerotic changes with no s ignificant hemodynamic stenosis and without significant velocity increases. Patient's sodium this morning was repeated and found to be 126 with a potassium of 3.9 and current creatinine is 0.93. Troponins have been negative. Patient continues to be hypertensive with most recent blood pressure being 162/93. She is currently maintained on atenolol 50 mg, chlorthalidone 25 mg, Catapres 0.3 mg 3 times daily, hydralazine 50 mg 3 times daily, and lisinopril and will continue. Will decrease Catapres to 0.2 mg 3 times daily and add Procardia XL 30 mg and monitor closely. Patient denies any chest pain, shortness of breath, or palpitations. Patient denies any dizziness or lightheadedness. Patient denies any headache at this time. Will place the patient on restrictions and repeat a.m. labs. 03/24/2020 Patient is currently awake alert and oriented x3. Tolerating oral diet. Blood pressure is better controlled today. Heart rate is in 50s. Reduced dose of Catapres and atenolol will be reduced. Will DC due to hyponatremia. And patient will be started gentle IV hydration. Monitor sodium level. No nausea vomiting or abdominal pain or diarrhea. Review of systems: Constitutional: No reports of fatigue, fever, or chills Cardiovascular: No reports of chest pain or palpitations Respiratory: No reports of shortness of breath or cough GI: No reports of nausea, vomiting, or diarrhea : No reports of dysuria or retention Neurovascular: No reports of weakness or numbness All medications have been reviewed Objective - Vital Signs Vital signs: Vital Signs Temp 98.7 F 03/24/20 20:36 Pulse 65 03/24/20 20:36 Resp 16 03/24/20 20:36 BP 152/90 03/24/20 20:36 Pulse Ox 98 03/24/20 20:36 Intake & Output 03/24/20 03/24/20 03/25/20 06:59 18:59 06:59 Intake Total 1620 Balance 1620 Intake: Intake, IV Titration 900 Amount Sodium Chloride 0.9% 1, 900 000 ml @ 75 mls/hr IV . [id number] JONATHAN Rx#:[id number] Oral 720 Other: Voiding Method Toilet # Voids 2 # Bowel Movements 0 - Exam Gen: This is a 64-year-old female currently sitting up at the side of the bed awake, alert and oriented 3, well-developed, thin built. HEENT: Head is atraumatic, normocephalic. Pupils equal, round. Sclerae is anicteric. NECK: Supple. No JVD. No lymphadenopathy. No thyromegaly. LUNGS: Diminished breath sounds bilaterally with no wheezing or rhonchi noted. No intercostal retractions. HEART: S1, S2 are present ABDOMEN: Soft. Bowel sounds are present. No masses. No tenderness. EXTREMITIES: No pedal edema. No calf tenderness. NEUROLOGICAL: Patient is awake, alert and oriented x3. Cranial nerves 2 through 12 are grossly intact. - Labs CBC & Chem 7: 03/25/20 05:22 03/25/20 05:22 Labs: Abnormal Lab Results - Last 24 Hours (Table) 03/24/20 Range/Units 11:31 Sodium 126 L (137-145) mmol/L Chloride 92 L (98-107) mmol/L BUN 30 H (7-17) mg/dL Creatinine 1.49 H (0.52-1.04) mg/dL Glucose 113 H (74-99) mg/dL Assessment and Plan Assessment: Syncopal episode,Possible hypovolemia. Hypertension with hypertensive urgency, present on admission Hyponatremia hypovolemic and diuretic Hypokalemia, improved History of TIA Chronic obstructive pulmonary disease, not in acute exacerbation Ruled out myocardial ischemia Continued ongoing nicotine dependence History of cataracts with surgery of the left eye Plan: Continue with current medication regimen. Procardia XL added and will decrease Catapres to 0.2 mg 3 times daily in the hopes of slowly weaning off of Catapres in the outpatient setting. Patient to continue with other home medications as previously ordered. Patient will be started on IV hydration with normal saline and monitor sodium level. Increase activity as tolerated and encourage oral protein intake. If blood pressure is more managed and sodium improved will likely discharge in 24 hours. Further recommendations to follow. Time with Patient: Greater than 30
--- NOTE | 2020-03-26 02:39 | P.PN ---
Subjective Progress Note Date: 03/25/20 Principal diagnosis: Syncopal episode,Possible hypovolemia. Hypertension with hypertensive urgency, present on admission Hyponatremia hypovolemic and diuretic This is a 64-year-old female who follows in the outpatient setting with Dr. King and is being closely monitored. Patient recently admitted for hypertension with hypertensive urgency along with an episode of syncope. Patient underwent a 2-D echo showing left ventricular systolic function showing low to normal with an EF between 50 and 55% with severely dilated LA, mild concentric left ventricular hypertrophy, moderate mitral regurgitation along with mild to moderate tricuspid regurgitation present. Patient also underwent carotid Doppler showing mild to moderate atherosclerotic changes with no significant hemodynamic stenosis and without significant velocity increases. Patient's sodium this morning was repeated and found to be 126 with a potassium of 3.9 and current creatinine is 0.93. Troponins have been negative. Patient continues to be hypertensive with most recent blood pressure being 162/93. She is currently maintained on atenolol 50 mg, chlorthalidone 25 mg, Catapres 0.3 mg 3 times daily, hydralazine 50 mg 3 times daily, and lisinopril and will continue. Will decrease Catapres to 0.2 mg 3 times daily and add Procardia XL 30 mg and monitor closely. Patient denies any chest pain, shortness of breath, or palpitations. Patient denies any dizziness or lightheadedness. Patient denies any headache at this time. Will place the patient on restrictions and repeat a.m. labs. 03/24/2020 Patient is currently awake alert and oriented x3. Tolerating oral diet. Blood pressure is better controlled today. Heart rate is in 50s. Reduced dose of Catapres and atenolol will be reduced. Will DC due to hyponatremia. And patient will be started gentle IV hydration. Monitor sodium level. No nausea vomiting or abdominal pain or diarrhea. 03/25/2020 Patient is currently lying in the bed comfortably. Tolerating oral diet. Sodium level is 126 today. IV fluids were started this morning. Repeat sodium level came back at 129. Continue to hold chlorthalidone due to hyponatremia and hypokalemia. Blood pressure is better controlled currently and gradually titrate down Catapres as an outpatient. Anticipate discharge in the next 24 hours with improvement in sodium level and blood pressure. Patient denied any complaints of chest pain or shortness of breath. No headache or dizziness or lightheadedness. Review of systems: Constitutional: No reports of fatigue, fever, or chills Cardiovascular: No reports of chest pain or palpitations Respiratory: No reports of shortness of breath or cough GI: No reports of nausea, vomiting, or diarrhea : No reports of dysuria or retention Neurovascular: No reports of weakness or numbness All medications have been reviewed Objective - Vital Signs Vital signs: Vital Signs Temp 98.2 F 03/25/20 12:44 Pulse 58 L 03/25/20 12:44 Resp 18 03/25/20 12:44 BP 107/65 03/25/20 12:44 Pulse Ox 98 03/25/20 12:44 Intake & Output 03/24/20 03/25/20 03/25/20 18:59 06:59 18:59 Intake Total 1620 Balance 1620 Intake: Intake, IV Titration 900 Amount Sodium Chloride 0.9% 1, 900 000 ml @ 75 mls/hr IV . [id number] JONATHAN Rx#:[id number] Oral 720 Other: Voiding Method Toilet # Voids 1 # Bowel Movements 0 - Exam Gen: This is a 64-year-old female currently sitting up at the side of the bed awake, alert and oriented 3, well-developed, thin built. HEENT: Head is atraumatic, normocephalic. Pupils equal, round. Sclerae is anicteric. NECK: Supple. No JVD. No lymphadenopathy. No thyromegaly. LUNGS: Diminished breath sounds bilaterally with no wheezing or rhonchi noted. No intercostal retractions. HEART: S1, S2 are present ABDOMEN: Soft. Bowel sounds are present. No masses. No tenderness. EXTREMITIES: No pedal edema. No calf tenderness. NEUROLOGICAL: Patient is awake, alert and oriented x3. Cranial nerves 2 through 12 are grossly intact. - Labs CBC & Chem 7: 03/25/20 05:22 03/25/20 05:22 Labs: Abnormal Lab Results - Last 24 Hours (Table) 03/25/20 03/25/20 Range/Units 05:22 05:22 WBC 12.10 H (4.50-10.00) X 10*3/uL MPV 8.8 L (9.5-12.2) fL Neutrophils # 7.85 H (1.80-7.70) X 10*3/uL Eosinophils # 0.48 H (0.04-0.35) X 10*3/uL Sodium 129 L (135-145) mmol/L Chloride 94 L (96-109) mmol/L BUN 38.0 H (9.0-27.0) mg/dL Est GFR (CKD-EPI)AfAm 41.9 L (60.0-200.0) Est GFR (CKD-EPI)NonAf 36.2 L (60.0-200.0) BUN/Creatinine Ratio 25.33 H (12.00-20.00) Ratio Glucose 118 H (70-110) mg/dL Assessment and Plan Assessment: Syncopal episode,Possible hypovolemia. Hypertension with hypertensive urgency, present on admission Hyponatremia hypovolemic and diuretic Hypokalemia, improved History of TIA Chronic obstructive pulmonary disease, not in acute exacerbation Ruled out myocardial ischemia Continued ongoing nicotine dependence History of cataracts with surgery of the left eye Plan: Continue with current medication regimen. Procardia XL added and will decrease Catapres to 0.2 mg 3 times daily in the hopes of slowly weaning off of Catapres in the outpatient setting. Patient to continue with other home medications as previously ordered. Patient will be started on IV hydration with normal saline and monitor sodium level. Increase activity as tolerated and encourage oral protein intake. If blood pressure is more managed and sodium improved will likely discharge in 24 hours. Further recommendations to follow. Time with Patient: Greater than 30
[2020-03-26] MEDS: atenoloL 25 MG TAB PO SCH (07:26)
[2020-03-26] MEDS: ASPIRIN 81 MG PO SCH (07:26)
[2020-03-26] MEDS: cloNIDine HCL 0.2 MG TAB PO SCH ×2 (07:27→21:20)
[2020-03-26] MEDS: lisinopriL 20 MG TAB PO SCH (07:27)
[2020-03-26] MEDS: ATORVASTATIN 80 MG TAB PO SCH (07:27)
[2020-03-26] MEDS: hydrALAZINE HCL 50 MG TAB PO SCH ×3 (07:28→21:19)
[2020-03-26] MEDS: prednisoLONE ACETATE 1% OPHTH DROPS 5 ML BTL RIGHT EYE SCH ×2 (07:29→21:20)
[2020-03-26 09:52] LABS: African American GFR (CKD) 41.9 (60.0-200.0); Anion Gap 7.3 mmol/L (4.00-12.00); BUN/Creat Ratio 28.67 Ratio (12.00-20.00); Calcium 9.3 mg/dL (8.7-10.3); Carbon Dioxide 25.7 mmol/L (21.6-31.8); Non-African American GFR(CKD) 36.2 (60.0-200.0); Potassium 4.6 mmol/L (3.5-5.5)
[2020-03-26 12:07] VITALS: RESP 16
[2020-03-27] MEDS: lisinopriL 20 MG TAB PO SCH (07:31)
[2020-03-27] MEDS: hydrALAZINE HCL 50 MG TAB PO SCH (07:31)
[2020-03-27] MEDS: cloNIDine HCL 0.2 MG TAB PO SCH (07:32)
[2020-03-27] MEDS: atenoloL 25 MG TAB PO SCH (07:32)
[2020-03-27] MEDS: prednisoLONE ACETATE 1% OPHTH DROPS 5 ML BTL RIGHT EYE SCH (07:32)
[2020-03-27] MEDS: ATORVASTATIN 80 MG TAB PO SCH (07:32)
[2020-03-27] MEDS: ASPIRIN 81 MG PO SCH (07:32)
[2020-03-27 11:31] VITALS: BMI 20.2
[2020-03-27 12:00] VITALS: BP 137/86; PULSE 59; TEMP 97.5
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
--- NOTE | 2020-03-27 18:45 | DS ---
DISCHARGE SUMMARY CHIEF COMPLAINT: Syncopal episode. HISTORY OF PRESENT ILLNESS AND PHYSICAL EXAMINATION: Details of this lady's history and physical can be found in the initial workup. LABORATORY STUDIES: While she was in the hospital she had laboratory studies, details of which can be found in the laboratory section of her chart. COURSE IN THE HOSPITAL: After admission she was placed on bedrest, started on intravenous fluids and worked up for etiology of her syncope. All of her studies were essentially negative. Shortly after admission, her blood pressure skyrocketed and she remained asymptomatic. Blood pressure continued to run significantly elevated at night and medication program was gradually stepped up until her blood pressure was brought under good control. She had no evidence of congestive heart failure, CVA, coronary artery issues, etc. She was doing well it was felt that she could go home on 03/27 and she will be set up with the medication program that was controlling her blood pressure while in the hospital and she will be contacted in several days by the office. FINAL DIAGNOSES: 1. Syncope. 2. Labile malignant hypertension. 3. Chronic obstructive pulmonary disease. OPERATIONS: None. CONSULTATIONS: None. She is improved. MMODL / IJN: [id number] /
== END 2020-03-27 16:35 | disposition home or self-care (01) | DRG 641 ==
LOC: EC 22:23 → 5NMEDONC 23:42
PROVIDERS: ADMIT Family Medicine; ATTEND Family Medicine
DX: E87.1 Hypo-osmolality and hyponatremia (principal); I16.0 Hypertensive urgency; I10 Essential (primary) hypertension; J44.9 Chronic obstructive pulmonary disease, unspecified; I08.1 Rheumatic disorders of both mitral and tricuspid valves; F17.210 Nicotine dependence, cigarettes, uncomplicated; E86.1 Hypovolemia; E87.6 Hypokalemia; Z20.822 Contact with and (suspected) exposure to COVID-19; Z79.82 Long term (current) use of aspirin; Z79.899 Other long term (current) drug therapy; Z83.3 Family history of diabetes mellitus; Z86.73 Personal history of transient ischemic attack (TIA), and cerebral infarction without residual deficits; Z90.89 Acquired absence of other organs; Z98.49 Cataract extraction status, unspecified eye; R55 Syncope and collapse; Z90.49 Acquired absence of other specified parts of digestive tract
CPT/HCPCS: 36415; 70450; 71046; 76770; 80048; 80053; 82570; 83036; 83930; 83935; 84133; 84300; 84443; 84484; 85025; 85610; 85730; 87635; 93005; 93306; 93880; 96360; 99285

== ENCOUNTER 2021-08-15 01:08 | Emergency (ER) | payer MEDICARE ==
[2021-08-15 01:17] VITALS: TEMP 98.1
[2021-08-15 01:29] LABS: Glucose,Whole Blood 115 mg/dL (70-110)
--- NOTE | 2021-08-15 01:33 | ED ---
Neuro HPI - General Chief Complaint: Neuro Symptoms/Deficit Stated Complaint: Syncope, dizziness Time Seen by Provider: 08/15/21 01:33 Source: patient, RN notes reviewed, old records reviewed Mode of arrival: wheelchair Limitations: no limitations - History of Present Illness Is the patient presenting with stroke symptoms?: Yes -: minutes(s), hour(s) Initial Comments: This is a 65-year-old female to the emergency department for evaluation. Patient presents today with what appears to be a syncopal event patient passing out patient passed out for about 15 seconds prior to arrival. Patient has no re cent travel history or sick contacts. No chest pain or shortness of breath. Location: other (Lightheadedness and dizziness) History of same: Yes Place: home Severity: moderate Quality: weak Worsens With: none On Anticoagulants: No Context: gradual onset Associated Symptoms: denies other symptoms Treatments Prior to Arrival: none - Related Data Home Medications: Home Medications Medication Instructions Recorded Confirmed Chlorthalidone [Hygroton] 25 mg PO DAILY 03/20/20 03/20/20 Ergocalciferol [Vitamin D2 (1250 1,250 mcg PO Q28D 03/20/20 03/20/20 Mcg = 05503 Iu)] atenoloL [Tenormin] 50 mg PO DAILY 03/20/20 03/20/20 cloNIDine HCL [Catapres] 0.2 mg PO TID 03/20/20 03/20/20 lisinopriL [Zestril] 40 mg PO DAILY 03/20/20 03/20/20 prednisoLONE acetate [Pred Mild] 2 drops RIGHT EYE BID 03/20/20 03/20/20 Previous Rx's Medication Instructions Recorded Aspirin 81 mg PO DAILY #30 chew 12/28/19 Atorvastatin [Lipitor] 80 mg PO DAILY #30 tab 12/28/19 NIFEdipine XL [Procardia XL] 60 mg PO DAILY #30 tab.er.24 03/27/20 hydrALAZINE HCL [Apresoline] 50 mg PO TID #90 tab 03/27/20 Allergies/Adverse Reactions: Allergies Allergy/AdvReac Type Severity Reaction Status Date / Time No Known Allergies Allergy Verified 08/15/21 01:13 Review of Systems ROS Statement: Those systems with pertinent positive or pertinent negative responses have been documented in the HPI. ROS Other: All systems not noted in ROS Statement are negative. General Exam Limitations: no limitations General appearance: alert, in no apparent distress Head exam: Present: atraumatic, normocephalic, normal inspection Eye exam: Present: normal appearance, PERRL, EOMI. Absent: scleral icterus, conjunctival injection, periorbital swelling ENT exam: Present: normal exam, mucous membranes moist Neck exam: Present: normal inspection. Absent: tenderness, meningismus, lymphadenopathy Respiratory exam: Present: normal lung sounds bilaterally. Absent: respiratory distress, wheezes, rales, rhonchi, stridor Cardiovascular Exam: Present: regular rate, normal rhythm, normal heart sounds. Absent: systolic murmur, diastolic murmur, rubs, gallop, clicks GI/Abdominal exam: Present: soft, normal bowel sounds. Absent: distended, tenderness, guarding, rebound, rigid Extremities exam: Present: normal inspection, full ROM, normal capillary refill. Absent: tenderness, pedal edema, joint swelling, calf tenderness Back exam: Present: normal inspection Neurological exam: Present: alert, oriented X3, CN II-XII intact Psychiatric exam: Present: normal affect, normal mood Skin exam: Present: warm, dry, intact, normal color. Absent: rash Stroke MDM - Lab Data Result diagrams: 08/15/21 02:53 08/15/21 02:53 Lab Results 08/15/21 08/15/21 08/15/21 Range/Units 01:26 02:53 02:53 WBC 10.8 H (3.8-10.6) k/uL RBC 4.41 (3.80-5.40) m/uL Hgb 14.0 (11.4-16.0) gm/dL Hct 42.6 (34.0-46.0) % MCV 96.7 (80.0-100.0) fL MCH 31.8 (25.0-35.0) pg MCHC 32.9 (31.0-37.0) g/dL RDW 13.0 (11.5-15.5) % Plt Count 416 (150-450) k/uL MPV 7.4 Neutrophils % 69 % Lymphocytes % 21 % Monocytes % 5 % Eosinophils % 3 % Basophils % 1 % Neutrophils # 7.4 (1.3-7.7) k/uL Lymphocytes # 2.3 (1.0-4.8) k/uL Monocytes # 0.6 (0-1.0) k/uL Eosinophils # 0.4 (0-0.7) k/uL Basophils # 0.1 (0-0.2) k/uL PT 9.7 (9.0-12.0) sec INR 0.9 (<1.2) APTT 23.4 (22.0-30.0) sec D-Dimer 0.35 (<0.60) mg/L FEU Sodium (137-145) mmol/L Potassium (3.5-5.1) mmol/L Chloride (98-107) mmol/L Carbon Dioxide (22-30) mmol/L Anion Gap mmol/L BUN (7-17) mg/dL Creatinine (0.52-1.04) mg/dL Est GFR (CKD-EPI)AfAm (>60 ml/min/1.73 sqM) Est GFR (CKD-EPI)NonAf (>60 ml/min/1.73 sqM) Glucose (74-99) mg/dL POC Glucose (mg/dL) 115 H (70-110) mg/dL POC Glu Seafood Team Member ID Liniarciarai, Yessica Lactic Ac Sepsis Rflx Plasma Lactic Acid Kade (0.7-2.0) mmol/L Calcium (8.4-10.2) mg/dL Phosphorus (2.5-4.5) mg/dL Magnesium (1.6-2.3) mg/dL Total Bilirubin (0.2-1.3) mg/dL AST (14-36) U/L ALT (4-34) U/L Alkaline Phosphatase (38-126) U/L Troponin I (0.000-0.034) ng/mL NT-Pro-B Natriuret Pep pg/mL Total Protein (6.3-8.2) g/dL Albumin (3.5-5.0) g/dL Urine Color Urine Appearance (Clear) Urine pH (5.0-8.0) Ur Specific [place] (1.001-1.035) Urine Protein (Negative) Urine Glucose (UA) (Negative) Urine Ketones (Negative) Urine Blood (Negative) Urine Nitrite (Negative) Urine Bilirubin (Negative) Urine Urobilinogen (<2.0) mg/dL Ur Leukocyte Esterase (Negative) Urine RBC (0-5) /hpf Urine WBC (0-5) /hpf Ur Squamous Epith Cells (0-4) /hpf Urine Mucus (None) /hpf 08/15/21 08/15/21 08/15/21 Range/Units 02:53 02:53 02:53 WBC (3.8-10.6) k/uL RBC (3.80-5.40) m/uL Hgb (11.4-16.0) gm/dL Hct (34.0-46.0) % MCV (80.0-100.0) fL MCH (25.0-35.0) pg MCHC (31.0-37.0) g/dL RDW (11.5-15.5) % Plt Count (150-450) k/uL MPV Neutrophils % % Lymphocytes % % Monocytes % % Eosinophils % % Basophils % % Neutrophils # (1.3-7.7) k/uL Lymphocytes # (1.0-4.8) k/uL Monocytes # (0-1.0) k/uL Eosinophils # (0-0.7) k/uL Basophils # (0-0.2) k/uL PT (9.0-12.0) sec INR (<1.2) APTT (22.0-30.0) sec D-Dimer (<0.60) mg/L FEU Sodium 130 L (137-145) mmol/L Potassium 4.8 (3.5-5.1) mmol/L Chloride 98 (98-107) mmol/L Carbon Dioxide 20 L (22-30) mmol/L Anion Gap 12 mmol/L BUN 12 (7-17) mg/dL Creatinine 0.79 (0.52-1.04) mg/dL Est GFR (CKD-EPI)AfAm >90 (>60 ml/min/1.73 sqM) Est GFR (CKD-EPI)NonAf 79 (>60 ml/min/1.73 sqM) Glucose 93 (74-99) mg/dL POC Glucose (mg/dL) (70-110) mg/dL POC Glu Seafood Team Member ID Lactic Ac Sepsis Rflx Plasma Lactic Acid Kade 2.3 H* (0.7-2.0) mmol/L Calcium 9.7 (8.4-10.2) mg/dL Phosphorus 3.9 (2.5-4.5) mg/dL Magnesium 1.8 (1.6-2.3) mg/dL Total Bilirubin 0.4 (0.2-1.3) mg/dL AST 32 (14-36) U/L ALT 19 (4-34) U/L Alkaline Phosphatase 96 (38-126) U/L Troponin I <0.012 (0.000-0.034) ng/mL NT-Pro-B Natriuret Pep pg/mL Total Protein 7.6 (6.3-8.2) g/dL Albumin 4.8 (3.5-5.0) g/dL Urine Color Urine Appearance (Clear) Urine pH (5.0-8.0) Ur Specific [place] (1.001-1.035) Urine Protein (Negative) Urine Glucose (UA) (Negative) Urine Ketones (Negative) Urine Blood (Negative) Urine Nitrite (Negative) Urine Bilirubin (Negative) Urine Urobilinogen (<2.0) mg/dL Ur Leukocyte Esterase (Negative) Urine RBC (0-5) /hpf Urine WBC (0-5) /hpf Ur Squamous Epith Cells (0-4) /hpf Urine Mucus (None) /hpf 08/15/21 08/15/21 08/15/21 Range/Units 02:53 04:01 04:29 WBC (3.8-10.6) k/uL RBC (3.80-5.40) m/uL Hgb (11.4-16.0) gm/dL Hct (34.0-46.0) % MCV (80.0-100.0) fL MCH (25.0-35.0) pg MCHC (31.0-37.0) g/dL RDW (11.5-15.5) % Plt Count (150-450) k/uL MPV Neutrophils % % Lymphocytes % % Monocytes % % Eosinophils % % Basophils % % Neutrophils # (1.3-7.7) k/uL Lymphocytes # (1.0-4.8) k/uL Monocytes # (0-1.0) k/uL Eosinophils # (0-0.7) k/uL Basophils # (0-0.2) k/uL PT (9.0-12.0) sec INR (<1.2) APTT (22.0-30.0) sec D-Dimer (<0.60) mg/L FEU Sodium (137-145) mmol/L Potassium (3.5-5.1) mmol/L Chloride (98-107) mmol/L Carbon Dioxide (22-30) mmol/L Anion Gap mmol/L BUN (7-17) mg/dL Creatinine (0.52-1.04) mg/dL Est GFR (CKD-EPI)AfAm (>60 ml/min/1.73 sqM) Est GFR (CKD-EPI)NonAf (>60 ml/min/1.73 sqM) Glucose (74-99) mg/dL POC Glucose (mg/dL) (70-110) mg/dL POC Glu Seafood Team Member ID Lactic Ac Sepsis Rflx Y Plasma Lactic Acid Kade (0.7-2.0) mmol/L Calcium (8.4-10.2) mg/dL Phosphorus (2.5-4.5) mg/dL Magnesium (1.6-2.3) mg/dL Total Bilirubin (0.2-1.3) mg/dL AST (14-36) U/L ALT (4-34) U/L Alkaline Phosphatase (38-126) U/L Troponin I (0.000-0.034) ng/mL NT-Pro-B Natriuret Pep 384 pg/mL Total Protein (6.3-8.2) g/dL Albumin (3.5-5.0) g/dL Urine Color Colorless Urine Appearance Clear (Clear) Urine pH 5.5 (5.0-8.0) Ur Specific [place] 1.004 (1.001-1.035) Urine Protein Negative (Negative) Urine Glucose (UA) Negative (Negative) Urine Ketones Negative (Negative) Urine Blood Trace H (Negative) Urine Nitrite Negative (Negative) Urine Bilirubin Negative (Negative) Urine Urobilinogen <2.0 (<2.0) mg/dL Ur Leukocyte Esterase Negative (Negative) Urine RBC 3 (0-5) /hpf Urine WBC 1 (0-5) /hpf Ur Squamous Epith Cells 1 (0-4) /hpf Urine Mucus Rare H (None) /hpf - NIH Stroke Scale 1a. Level of Consciousness: (0) alert 1b. LOC Questions: (0) answers correctly 1c. LOC Commands: (0) performs tasks correctly 2. Best Gaze: (0) normal 3. Visual: (0) no visual loss 4. Facial Palsy: (0) normal symmetrical movement 5a. Motor Arm Left: (0) no drift 5b. Motor Arm Right: (0) no drift 6a. Motor Leg Left: (0) no drift 6b. Motor Leg Right: (0) no drift 7. Limb Ataxia: (0) absent 8. Sensory: (0) normal 9. Best Language: (0) no aphasia 10. Dysarthria: (0) normal 11. Extinction/Inattention: (0) no abnormality - Medical Decision Making 65 female with syncopal event feeling well here in the emergency department. Patient has no recurrent syncope here in the ER and can be discharged home - Radiology Data Radiology results: report reviewed (CT brain negative for acute disease), image reviewed - EKG Data -: EKG Interpreted by Me (EKG sinus rhythm 63 WA 170 QRS 94 QTC 427) Past Medical History Past Medical History: CVA/TIA, Hypertension History of Any Multi-Drug Resistant Organisms: None Reported Past Surgical History: Appendectomy, Section, Tonsillectomy Past Anesthesia/Blood Transfusion Reactions: No Reported Reaction Past Psychological History: Anxiety Smoking Status: Current every day smoker Past Alcohol Use History: Daily Past Drug Use History: Marijuana - Past Family History Brother(s) Family Medical History: Diabetes Mellitus Course Vital Signs 08/15/21 08/15/21 08/15/21 01:13 04:03 05:02 Temperature 98.1 F 98.1 F Pulse Rate 71 78 81 Respiratory 17 18 18 Rate Blood Pressure 121/79 150/98 136/95 O2 Sat by Pulse 98 98 96 Oximetry - Reevaluation(s) Reevaluation #1: 08/15/21 Medical record is reviewed Reevaluation #2: 08/15/21 Patient has no recurrent syncope here in the ER Reevaluation #3: 08/15/21 Patient informed results and questions are answered Disposition Clinical Impression: Syncope Disposition: HOME SELF-CARE Condition: Good Instructions (If sedation given, give patient instructions): Syncope (ED) Is patient prescribed a controlled substance at d/c from ED?: No Referrals: Grady King MD [Primary Care Provider] - 1-2 days Time of Disposition: 04:40
[2021-08-15] MEDS ORDERED: SODIUM CHLORIDE 0.9% 1,000 ML IV STA ×2 (01:56)
--- NOTE | 2021-08-15 02:39 | CT ---
EXAM: CT Head Without Intravenous Contrast CLINICAL HISTORY: ITS.REASON CT Reason: weakness TECHNIQUE: Axial computed tomography images of the head/brain without intravenous contrast. CTDI is 49.1 mGy and DLP is 1044.4 mGy-cm. This CT exam was performed using one or more of the following dose reduction techniques: automated exposure control, adjustment of the mA and/or kV according to patient size, and/or use of iterative reconstruction technique. COMPARISON: CT Head dated 03/19/20 FINDINGS: Brain: Stable approximately 3 cm low-density area within the left parietal white matter. May relate to prior infarct/chronic changes. Mild volume loss with prominent ventricles and sulci. Mild periventricular hypoattenuation , likely chronic small vessel disease. No hemorrhage. Ventricles: Unremarkable. No ventriculomegaly. Bones/joints: Unremarkable. No acute fracture. Soft tissues: Unremarkable. Sinuses: Unremarkable as visualized. No acute sinusitis. Mastoid air cells: Unremarkable as visualized. No mastoid effusion. IMPRESSION: 1. No evidence of acute intracranial abnormality. 2. Stable chronic changes of volume loss, small vessel disease, left parietal more focal small vessel disease/old infarct
[2021-08-15 03:29] LABS: Basophils # (A) 0.1 k/uL (0-0.2); Basophils % (A) 1 %; Eosinophils # (A) 0.4 k/uL (0-0.7); Eosinophils % (A) 3 %; HCT 42.6 % (34.0-46.0); Lymphocytes # (A) 2.3 k/uL (1.0-4.8); Lymphocytes % (A) 21 %; MCH 31.8 pg (25.0-35.0); MCHC 32.9 g/dL (31.0-37.0); MCV 96.7 fL (80.0-100.0); Mean Platelet Volume 7.4; Monocytes # (A) 0.6 k/uL (0-1.0); Monocytes % (A) 5 %; Neutrophils # (A) 7.4 k/uL (1.3-7.7); Neutrophils % (A) 69 %; Platelet Count 416 k/uL (150-450); RBC 4.41 m/uL (3.80-5.40); WBC 10.8 k/uL (3.8-10.6)
[2021-08-15 03:38] LABS: INR 0.9 (<1.2); Partial Thromboplastin Time 23.4 sec (22.0-30.0); Prothrombin Time 9.7 sec (9.0-12.0)
[2021-08-15 04:06] VITALS: RESP 18
[2021-08-15 04:23] LABS: ALT 19 U/L (4-34); AST 32 U/L (14-36); African American GFR (CKD) >90 (>60 ml/min/1.73 sqM); Albumin 4.8 g/dL (3.5-5.0); Alkaline Phosphatase 96 U/L (38-126); Anion Gap 12 mmol/L; Blood Urea Nitrogen 12 mg/dL (7-17); Calcium 9.7 mg/dL (8.4-10.2); Carbon Dioxide 20 mmol/L (22-30); Chloride 98 mmol/L (98-107); Glucose 93 mg/dL (74-99); Magnesium 1.8 mg/dL (1.6-2.3); Non-African American GFR(CKD) 79 (>60 ml/min/1.73 sqM); Phosphorus 3.9 mg/dL (2.5-4.5); Potassium 4.8 mmol/L (3.5-5.1); Sodium 130 mmol/L (137-145); Total Bilirubin 0.4 mg/dL (0.2-1.3); Total Protein 7.6 g/dL (6.3-8.2)
[2021-08-15 04:42] LABS: Appearance,Urine Clear (Clear); Bilirubin,Urine Negative (Negative); Blood,Urine Trace (Negative); Color,Urine Colorless; Glucose,Urine (UA) Negative (Negative); Ketones,Urine Negative (Negative); Leukocyte Esterase,Urine Negative (Negative); Mucus,Urine Rare /hpf; Nitrite,Urine Negative (Negative); PH, Urine 5.5 (5.0-8.0); Protein,Urine Negative (Negative); RBC,Urine 3 /hpf (0-5); Specific Gravity,Urine 1.004 (1.001-1.035); Squamous Epithelial Cell,Urine 1 /hpf (0-4); Urobilinogen,Urine <2.0 mg/dL (<2.0); WBC,Urine 1 /hpf (0-5)
[2021-08-15 05:04] VITALS: BP 136/95; PULSE 81
== END 2021-08-15 05:04 | disposition home or self-care (01) ==
LOC: EC 01:08
DX: R55 Syncope and collapse (principal); R42 Dizziness and giddiness
CPT/HCPCS: 36415; 70450; 80053; 81001; 83605; 83735; 83880; 84100; 84484; 85025; 85379; 85610; 85730; 93005; 96360; 96361; 99284

== ENCOUNTER → 2024-05-19 | Outpatient (CLI) | payer MEDICARE, OTHER ==
--- NOTE | 2024-05-19 17:27 | MM ---
Reason for Exam: Screening (asymptomatic). Last mammogram was performed 13 year(s) and 10 month(s) ago. Patient History: Menarche at age 12. First Full-Term at age 18. Postmenopausal. Hormonal Contraceptives for 4 years from age 16 until age 20. Risk Values: Paola 5 year model risk: 1.2%. NCI Lifetime model risk: 3.9%. Prior Study Comparison: No prior studies available for comparison. Tissue Density: The breasts are heterogeneously dense, which may obscure small masses. Findings: Analyzed By CAD. Focal asymmetry upper-outer quadrant right breast middle to posterior depth incompletely disperses on 3-D images. This may represent superimposition shadow but further evaluation is recommended. Additional area of nodular asymmetric density subareolar right MLO view for which further evaluation is recommended. Benign bilateral vascular calcifications. Otherwise, no discrete abnormality is seen. Overall Assessment: Incomplete: need additional imaging evaluation, BI-RAD 0 Management: Special View Mammogram of the right breast. [facility] will attempt to contact patient to return for supplemental views and ultrasound if indicated. [facility], , 05/19/2024 5:24 PM. Electronically signed and approved by: Le Merino M.D. Radiologist
== END | disposition home or self-care (01) ==
LOC: RADMAMWWP 12:45
PROVIDERS: ATTEND Family Medicine
DX: Z12.31 Encounter for screening mammogram for malignant neoplasm of breast (principal); R92.333 Mammographic heterogeneous density, bilateral breasts; Z78.0 Asymptomatic menopausal state; Z92.0 Personal history of contraception
CPT/HCPCS: 77063; 77067

== ENCOUNTER → 2024-05-23 | Outpatient (CLI) | payer MEDICARE, OTHER ==
--- NOTE | 2024-05-23 13:11 | MM ---
Reason for Exam: Additional evaluation requested from abnormal screening. Last screening mammogram was performed less than 1 month ago. Patient History: Menarche at age 12. First Full-Term at age 18. Postmenopausal. Hormonal Contraceptives for 4 years from age 16 until age 20. Risk Values: Paola 5 year model risk: 1.2%. NCI Lifetime model risk: 3.9%. Prior Study Comparison: 05/04/2008 Bilateral Screening Mammogram, [facility]. 07/26/2010 Bilateral Screening Mammogram, [facility]. 05/19/2024 Bilateral MG 3D screening mammo w/cad, [facility]. Tissue Density: Right: The breasts are heterogeneously dense, which may obscure small masses. Findings: Analyzed By CAD. No suspicious focal masses persist on additional views. Overall Assessment: Negative, BI-RAD 1 Management: Screening Mammogram of both breasts in 1 year. . Results were given to the patient verbally at the time of exam. Patient should continue monthly self-breast exams. A clinical breast exam by your physician is recommended on an annual basis. This exam should not preclude additional follow-up of suspicious palpable abnormalities. Note on Paola scores and lifetime risk: 1. A Paola score greater than 3% is considered moderate risk. If this is the case, consider specialist referral to assess eligibility for a risk reducing agent. 2. If overall lifetime risk for the development of breast cancer is 20% or higher, the patient may qualify for future screening with alternating mammogram and breast MRI. [facility], , 05/23/2024 1:08 PM. Electronically signed and approved by: Marquis Mari M.D.
== END | disposition home or self-care (01) ==
LOC: RADMAMWWP 12:35
PROVIDERS: ATTEND Family Medicine
DX: R92.8 Other abnormal and inconclusive findings on diagnostic imaging of breast (principal); R92.331 Mammographic heterogeneous density, right breast; Z78.0 Asymptomatic menopausal state; Z92.0 Personal history of contraception
CPT/HCPCS: 77065; G0279; 77061